=== PATIENT | female | born 1985 | race Caucasian/White ===

== ENCOUNTER → 2017-02-09 11:59 | Emergency (ER) | payer MEDICAID ==
[~2017-02-09 11:59] MED LIST: Morphine INJ* 4 MG/ML 1 ML CARPUJECT IV ONE; NS 0.9% 1000 ML* 1,000 ML IV ONE; Ondansetron INJ* 2 MG/ML VIAL IV ONE
--- NOTE | 2017-02-09 14:00 | RAD ---
HISTORY: Seizure COMPARISONS: None VIEWS: 4: Frontal dual-energy and lateral views of the chest. FINDINGS: CARDIOMEDIASTINAL SILHOUETTE: The cardiomediastinal silhouette is normal. GARETH: The gareth are normal. PLEURA: The costophrenic angles are sharp. No pleural abnormalities are noted. LUNG PARENCHYMA: The lungs are clear. ABDOMEN: The upper abdomen is clear. There is no subphrenic gas. BONES AND SOFT TISSUES: No bone or soft tissue abnormalities are noted. OTHER: None. IMPRESSION: NO ACTIVE CARDIOPULMONARY DISEASE.
[2017-02-09 14:22] LABS: Hematocrit 40 % (35-47); Hemoglobin 13.1 g/dl (12.0-16.0); Mean Corpuscular HGB Conc 33 g/dl (31-36); Mean Corpuscular Hemoglobin 32 pg (27-31); Mean Corpuscular Volume 97 fL (80-97); Mean Platelet Volume 9 um3 (7.4-10.4); Red Cell Distribution Width 14 % (10.5-15); White Blood Count 12.7 10^3/ul (3.5-10.8)
[2017-02-09 14:42] LABS: ALT 12 U/L (7-52); AST 12 U/L (13-39); Albumin 4.3 g/dL (3.2-5.2); Alkaline Phosphatase 41 U/L (34-104); Anion Gap 5 mmol/L (2-11); BUN/Creatinine Ratio 23.9 (8-20); Blood Urea Nitrogen 16 mg/dL (6-24); CO2 Carbon Dioxide 23 mmol/L (22-32); Calcium 9.4 mg/dL (8.6-10.3); Chloride 108 mmol/L (101-111); EGFR African American 130.4 (>60); EGFR Non-African American 101.4 (>60); Globulin 2.8 g/dL (2-4); Glucose 97 mg/dL (70-100); Magnesium 2.3 mg/dL (1.9-2.7); Potassium 3.8 mmol/L (3.5-5.0); Sodium 136 mmol/L (133-145); Total Protein 7.1 g/dL (6.4-8.9)
[2017-02-09 15:09] LABS: Alcohol < 10 mg/dL (<10)
[2017-02-09 17:47] VITALS: BP 118/52
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
== END | disposition home or self-care (01) ==
LOC: ED 11:59
DX: R55 Syncope and collapse (principal); R51 Headache; R11.2 Nausea with vomiting, unspecified; F12.90 Cannabis use, unspecified, uncomplicated; F17.210 Nicotine dependence, cigarettes, uncomplicated
CPT/HCPCS: 36415; 71020; 80053; 80320; 83735; 85025; 85610; 93005; 96360; 99283; G0480

== ENCOUNTER 2017-05-09 08:52 | Day surgery (SDC) | payer OTHER ==
--- NOTE | 2017-05-02 08:10 | HP ---
Cc: Bang Mayfield MD * HISTORY AND PHYSICAL: DATE OF ADMISSION: 05/09/17 ATTENDING SURGEON: Andrew Collins MD * (DICTATED BY DANIEL CINTRON) CHIEF COMPLAINT: Umbilical hernia. HISTORY OF PRESENT ILLNESS: This is a generally healthy 31-year-old female with an umbilical hernia present since her last 8 years ago. The hernia had been relatively asymptomatic with only occasional discomfort until recent weeks when she was moving and was lifting multiple boxes of books. She reports some increased discomfort and enlargement of the hernia, though nothing to suggest incarceration or strangulation and certainly no significant GI or symptoms. The patient has also been previously noted to have diastasis recti during one of her pregnancies. She was seen in the office today by Dr. Collins who confirmed the presence of a small to moderate sized umbilical hernia which was reducible and nontender. He has reviewed with her the indications for repair, the risks, benefits and alternatives. She understands the expected perioperative course and would like to proceed as scheduled with open repair umbilical hernia with mesh. PAST MEDICAL HISTORY: Bipolar disorder (self-treats with cannabis). No other active or chronic medical problems. She recently did have a fall with some left back and rib pain by her history. A chest x-ray done showed no acute problems or rib fractures. PAST SURGICAL HISTORY: Previous surgeries include: 1. x2, both via Pfannenstiel incisions. 2. Tonsillectomy. 3. [place] teeth extraction. 4. Tympanostomy tubes in the past without any problems reported. CURRENT MEDICATIONS: She takes no prescription medications. She does eat a fair amount of garlic and stephan in her diet and was advised to reduce the garlic intake preoperatively. ALLERGIES: Drug allergies none known (she does experience itchiness in her face from multiple fruits and has tested positive for BANANA allergy). FAMILY HISTORY: Noncontributory in terms of anesthesia problems, bleeding or clotting disorders. SOCIAL HISTORY: The patient lives with her boyfriend and his 2 children. 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 She smokes 2 to 3 tobacco with cannabis cigarettes per day. She denies use of alcohol or other recreational drugs. REVIEW OF SYSTEMS: General: No recent constitutional symptoms or acute illnesses. She states that her weight has been stable and states that she is up to date for immunizations. Cardiovascular: No chest pain, palpitations or history of heart murmur. Respiratory: No history of asthma or chronic cough. GI: No problems reported. : No problems reported. EMERGENCY DEPARTMENT CLINICIAN: Up to date for breast and pelvic exams in July 2016. Neuro/Psych: She was admitted both in 2013 and 2014 for her bipolar disorder. PHYSICAL EXAMINATION GENERAL: Well-nourished, well-developed female in no acute distress. VITAL SIGNS: Height 64 inches, weight 155 pounds. Temperature 99.1, blood pressure 144/70, pulse 62, respirations 16. SKIN: Warm and dry. No suspicious rashes or lesions. HEENT: Pupils equal and round, reactive. EOMs intact. No conjunctival pallor. Oropharynx: Teeth in good repair. No intraoral lesions. NECK: No lymphadenopathy, thyromegaly or masses. LUNGS: Clear to auscultation. No wheezes. HEART: Regular rate and rhythm. No murmur noted. BREASTS: Not examined. ABDOMEN: There is a laxity of the skin in the mid abdomen. There is a visible and palpable umbilical bulge consistent with umbilical hernia, which is nontender and reducible with the defect measuring approximately 4 cm in diameter. The remainder of the abdomen is soft, nontender and without palpable masses or organomegaly. GENITALIA: Not done. RECTAL: Not done. EXTREMITIES: No edema. NEUROLOGIC: Grossly intact. IMPRESSION: Umbilical hernia. PLAN: Open repair umbilical hernia with mesh. DANIEL CINTRON [id number]/[facility] #: [id number] FRANCA
[~2017-05-09 08:52] MED LIST changes: +Buffered Lidocaine 0.9% SYRIN* 5 ML/SYR SYRINGE INTRADERM ONE; +Dexamethasone IV* 4 MG/ML 1 ML (4 MG) IV SLOW PU ONE; +Famotidine IV* 10 MG/ML 2 ML (20 mg) IV ONE; -Morphine INJ* 4 MG/ML 1 ML CARPUJECT IV ONE; -NS 0.9% 1000 ML* 1,000 ML IV ONE; -Ondansetron INJ* 2 MG/ML VIAL IV ONE
[2017-05-09] MEDS ORDERED: ceFAZolin 2 GM PREMIX (*) 2 GM/50 ML BAG IVPB ONE (09:06)
[2017-05-09] MEDS ORDERED: Famotidine IV* 10 MG/ML 2 ML (20 mg) ONE (09:06)
[2017-05-09] MEDS ORDERED: Dexamethasone IV* 4 MG/ML 1 ML (4 MG) ONE (09:06)
[2017-05-09] MEDS ORDERED: Buffered Lidocaine 0.9% SYRIN* 5 ML/SYR SYRINGE ONE (09:07)
[2017-05-09] MEDS ORDERED: Bupivacaine 0.5% SDV PF* 10-30ML VIAL ONE (09:57)
[2017-05-09] MEDS ORDERED: Lidocaine 1% MPF wEPI 200,000* 30 ML SDV ONE (09:57)
[2017-05-09] MEDS ORDERED: Lidocaine 2% PF * 5 ML VIAL ONE (10:08)
[2017-05-09] MEDS ORDERED: Propofol* 10 MG/ML 20 ML BTL IV PUSH ONE (10:08)
[2017-05-09] MEDS ORDERED: Ketorolac INJ* 30 MG/ML 1 ML VIAL ONE (10:08)
[2017-05-09] MEDS ORDERED: Midazolam* 1 MG/ML 10 ML VIAL (10 MG) ONE (10:08)
[2017-05-09] MEDS ORDERED: fentaNYL* 50 MCG/ML 5 ML VIAL (250 MCG VIAL) ONE (10:08)
[2017-05-09] MEDS ORDERED: Atracurium* 10 MG/ML 10 ML VIAL ONE (10:08)
[2017-05-09] MEDS ORDERED: Ondansetron INJ* 2 MG/ML VIAL ONE (10:08)
[2017-05-09] MEDS ORDERED: Naloxone* 0.4 MG/ML 1 ML VIAL IV PRN (10:37)
[2017-05-09] MEDS ORDERED: oxyCODONE/Acetamin 5/325 MG* TAB PO PRN (10:37)
[2017-05-09] MEDS ORDERED: fentaNYL* 50 MCG/ML 2 ML VIAL (100 MCG VIAL) IV PRN (10:37)
[2017-05-09] MEDS ORDERED: DiMENhydriNATE IV* 50 MG/ML VIAL IV PUSH PRN (10:37)
[2017-05-09] MEDS ORDERED: Ondansetron INJ* 2 MG/ML VIAL IV PRN (10:37)
--- NOTE | 2017-05-09 11:13 | OP ---
Operative Report - Blank - Operative Report Date of Operation: 05/09/17 Note: Pre and Postop Dxs: Umbilical Hernia (w/ diastasis recti) Procedure: open repair umbilical hernia w/ mesh Anesthesia: LMA gen; local Surgeon: Dennis Asst: DANIEL Sanchez Fluids: 750 ml RL EBL: 10 ml Drains: none Specimen: none Findings: dictated
[2017-05-09 12:12] VITALS: BP 100/78
--- NOTE | 2017-05-10 01:12 | OP ---
CC: Dr. Mayfield * DATE OF OPERATION: 05/09/17 - [facility] DATE OF : 81 SURGEON: Andrew Collins MD ASSISTANT FACILITY MANAGER: DANIEL Alanis ANESTHESIOLOGIST: Dr. Benjamin. ANESTHESIA: General anesthetic, local infiltration. PRE-OP DIAGNOSIS: Umbilical hernia with some diastasis. POST-OP DIAGNOSIS: Umbilical hernia with some diastasis. OPERATIVE PROCEDURE: Open umbilical hernia repair with mesh with plication of diastasis recti. DESCRIPTION OF PROCEDURE: The patient was supine on the operative table. After adequate general anesthetic, compression stockings, Lilly Hugger warmer, and intravenous antibiotics, the abdomen was prepped with antiseptic, draped in a sterile fashion. Local infiltrative anesthesia was administered. Approximately 3 cm curvilinear incision was created at the supraumbilical fold. Dissection was carried down to the hernia defect, which was about 1.5 cm across. The fascia in this area was very attenuated as it was part of the diastasis. The spread of the diastasis was about 3 to 4 cm. Ethibond sutures were utilized to bring the rectus muscle together above and below the umbilicus. This was done through the edge of the rectus sheath. Two sutures above and 2 sutures below were utilized. The preperitoneal plane had been developed and these were full thickness sutures. This was carried out about 4 to 5 cm from the umbilicus in each direction. Then, a 6.4 cm patch was put in place, sutured around the periphery with interrupted sutures of 0 Vicryl. The fascia was closed over top with 0 Vicryl. The umbilicus was tacked back down and the adipose approximated with 3-0 Vicryl and skin with 5-0 Vicryl followed by Steri-Strips. She tolerated the procedure well, was awakened and brought to Recovery in good condition. No complications. No drains. No pathologic specimens. Sponge and instrument counts were correct. Estimated blood loss is less than 20 mL. [id number]/[facility] #: [id number] MTDD
== END 2017-05-09 12:13 | disposition home or self-care (01) ==
LOC: OR 08:52
PROVIDERS: ATTEND Surgery
DX: K42.9 Umbilical hernia without obstruction or gangrene (principal); F31.9 Bipolar disorder, unspecified; F17.210 Nicotine dependence, cigarettes, uncomplicated
CPT/HCPCS: 81025; C1781; J0690; J1100; J1885; J2001; J2250; J2405; J2704; J3010

== ENCOUNTER 2017-05-12 09:38 | Emergency (ER) | payer OTHER ==
--- NOTE | 2017-05-12 11:37 | ED ---
Abdominal Pain/Female - HPI Summary HPI Summary: Patient presents 3 days postop umbilical hernia repair with mesh by Dr. Collins. She presents with worsening pain and concern for cellulitic infection patient denies fever, sweats, chills. She notes to a erythematous area around the umbilicus with diffuse pain to the entire abdomen, worse with movement better with rest. She is currently out of her pain medications and continues to be use ice to the abdomen for comfort. Follow up with Dr. Collins is on Saturday of this week, 6 days from today, and she feels she is unable to wait that long for pain control and assessment. She was able to call Dr. Mcfarlane this morning recommended she come to the ED for an evaluation. She denies any constipation. - History of Current Complaint Chief Complaint: EDAbdPain Stated Complaint: POSSIBLE HERNIA Time Seen by Provider: 05/12/17 10:09 Hx Obtained From: Patient Hx Last Menstrual Period: 2 weeks ago ?: No Onset/Duration: Sudden Onset, Gradual Onset Timing: Constant Severity Initially: Moderate Severity Currently: Moderate Pain Intensity: 5 Pain Scale Used: 0-10 Numeric Character: Cramping Aggravating Factor(s): Deep Breaths Alleviating Factor(s): Nothing Associated Signs and Symptoms: Positive: Urinary Symptoms - Risk Factors Ectopic Risk Factor: Negative Ovarian Torsion Risk Factor: Negative Allergies/Adverse Reactions: Allergies Allergy/AdvReac Type Severity Reaction Status Date / Time Banana Allergy Mild itchinees Verified 05/09/17 09:21 around mouth PMH/Surg Hx/FS Hx/Imm Hx Previously Healthy: Yes Endocrine/Hematology History: Denies: Hx Diabetes, Hx Thyroid Disease Cardiovascular History: Reports: Hx Hypertension - INDUCED during 2nd -resolved Denies: Hx Pacemaker/ICD Respiratory History: Denies: Hx Asthma, Hx Chronic Obstructive Pulmonary Disease (COPD) GI History: Denies: Hx Ulcer Sensory History: Reports: Hx Contacts or Glasses - glasses Denies: Hx Hearing Aid Opthamlomology History: Reports: Hx Contacts or Glasses - glasses Psychiatric History: Reports: Hx Depression - when younger, Hx Panic Disorder, Hx Inpatient Treatment, Hx Community Mental Health Tx, Hx Bipolar Disorder Denies: Hx Eating Disorder, Hx of Violent Episodes Against Others Comment Only: Hx Anxiety - when younger - Surgical History Surgery Procedure, Year, and Place: 2 C SECTIONS, TONSILECTOMY Hx Anesthesia Reactions: No - Immunization History Hx Pertussis Vaccination: No Immunizations Up to Date: Unable to Obtain/Confirm Infectious Disease History: No Infectious Disease History: Denies: Hx Hepatitis, Hx Human Immunodeficiency Virus (HIV), Traveled Outside the US in Last 30 Days - Family History Known Family History: Positive: None - Social History Occupation: Employed Full-time Lives: With Family Alcohol Use: None Hx Substance Use: Yes Substance Use Type: Reports: Marijuana Substance Use Comment - Amount & Last Used: combined with cigarette tobacco Hx Tobacco Use: Yes Smoking Status (MU): Light Every Day Tobacco Smoker Amount Used/How Often: smoking on and off since 16 years old 2 cigarettes a day Have You Smoked in the Last Year: No Review of Systems Constitutional: Negative Negative: Fever, Chills, Fatigue, Skin Diaphoresis Eyes: Negative Cardiovascular: Negative Respiratory: Negative Positive: Abdominal Pain Genitourinary: Negative Positive: no symptoms reported, see HPI Positive: Other - erythematous ring extending approximately 16 cm from the umbilicus Neurological: Negative All Other Systems Reviewed And Are Negative: Yes Physical Exam Triage Information Reviewed: Yes Vital Signs On Initial Exam: Initial Vitals Temp Pulse Resp BP Pulse Ox 98.9 F 70 16 115/72 99 05/12/17 09:41 05/12/17 09:41 05/12/17 09:41 05/12/17 09:41 05/12/17 09:41 Vital Signs Reviewed: Yes Appearance: Positive: Well-Appearing, No Pain Distress, Well-Nourished Skin: Positive: Warm, Skin Color Reflects Adequate Perfusion, Other - Erythematous ring extending 6 cm from the umbilicus Head/Face: Positive: Normal Head/Face Inspection - History Neck: Positive: Supple, Nontender, No Lymphadenopathy Respiratory/Lung Sounds: Positive: Clear to Auscultation, Breath Sounds Present Cardiovascular: Positive: RRR, Pulses are Symmetrical in both Upper and Lower Extremities Neurological: Positive: Sensory/Motor Intact, Alert, Oriented to Person Place, Time, Speech Normal Psychiatric: Positive: Normal, Affect/Mood Appropriate Diagnostics - Vital Signs Vital Signs Temp Pulse Resp BP Pulse Ox 05/12/17 09:41 98.9 F 70 16 115/72 99 - Laboratory Lab Statement: Any lab studies that have been ordered have been reviewed, and results considered in the medical decision making process. Abdominal Pain Fem Course/Dx - Course Course Of Treatment: During the course of treatment, the patient is evaluated for postop surgical pain. There is an erythematous ring extending 6 cm out from the umbilicus resembling a cellulitic infection. There is diffuse tenderness to the entire abdomen. I have called Dr. Mcfarlane who states the surgery was on umbilical hernia repair with mesh with diastasis recti repair which could cause pain due to the muscle being pulled during surgery. She states this is a common occurrence, and likely this pain is related to the surgery. That is, this was not a simple small umbilical hernia repair. Patient is made aware of this and and states she feels as though it is a muscle strain. Coupled with this, and provider assessment, I believe this is normal postop pain and will discharge her with instructions. She is currently out of pain control, and will be given hydrocodone with acetaminophen. She endorses some nausea with this medication and she is encouraged to take Zofran 20 minutes prior to taking the pain control as well as eating solid foods prior to medication. She is also given 7 days of Keflex to prevent any worsening cellulitic infection. She is to call Dr. Collins's office tomorrow morning to get in to see him before Saturday. - Diagnoses Provider Diagnoses: Post-op pain Discharge - Discharge Plan Condition: Stable Disposition: HOME Prescriptions: Cephalexin CAP* [Keflex CAP*] 500 mg PO QID #28 cap Hydrocodone/Acetamin 10/325(NF [[place] 10/325 (NF)] 1 tab PO Q6H #15 tab MDD 4 Ondansetron ODT TAB* [Zofran 4 MG Odt TAB*] 4 mg PO Q6H PRN #20 tab.odt MDD 4 PRN Reason: Nausea Patient Education Materials: Umbilical Hernia Repair (DC) Referrals: Bang Mayfield MD [Primary Care Provider] - Additional Instructions: Follow up with surgery tomorrow Call Dr. Collins office for an appointment Take Zofran 1 tab 20 minutes prior to taking pain control Always eat before you take pain medicine Keflex 4 times daily for 7 days to prevent infection
[2017-05-12 11:47] VITALS: BP 110/70
== END 2017-05-12 11:43 | disposition home or self-care (01) ==
LOC: ED 09:38
DX: G89.18 Other acute postprocedural pain (principal); R10.9 Unspecified abdominal pain; F17.210 Nicotine dependence, cigarettes, uncomplicated
CPT/HCPCS: 99282

== ENCOUNTER 2017-08-09 02:59 | Emergency (ER) | payer OTHER ==
[2017-08-09 04:07] LABS: Urine Appearance Cloudy; Urine Blood Negative (Negative); Urine Color Yellow; Urine Ketones Trace (Negative); Urine Protein Negative (Negative); Urine Specific Gravity 1.017 (1.010-1.030); Urine Urobilinogen Negative (Negative)
[2017-08-09 04:09] LABS: ABS Basophils 0.1 10^3/ul (0-0.2); ABS Eosinophils 0.2 10^3/ul (0-0.6); ABS Lymphocytes 2.8 10^3/ul (1.0-4.8); ABS Monocytes 0.9 10^3/ul (0-0.8); ABS Neutrophils 6.2 10^3/ul (1.5-7.7); ABS Nucleated RBC 0 10^3/ul; Eosinophil % 2.1 % (0-6); Hematocrit 36 % (35-47); Hemoglobin 12.3 g/dl (12.0-16.0); Lymphocyte % 27.4 % (25-47); Mean Corpuscular HGB Conc 34 g/dl (31-36); Mean Corpuscular Hemoglobin 33 pg (27-31); Mean Corpuscular Volume 96 fL (80-97); Mean Platelet Volume 8.1 um3 (7.4-10.4); Nucleated Red Blood Cells % 0; Platelet Count 292 10^3/ul (150-450); Red Blood Count 3.79 10^6/ul (4.0-5.4); Red Cell Distribution Width 15 % (10.5-15); White Blood Count 10.1 10^3/ul (3.5-10.8)
[2017-08-09 04:24] LABS: EGFR Non-African American 86.3 (>60)
--- NOTE | 2017-08-09 06:44 | ED ---
Yana Clark Rebecca, scribed for Terry Do MD on 08/09/17 at 0412 . Psychiatric Complaint - HPI Summary HPI Summary: Pt is a 31 y/o F who presents to ED requesting a MHE. Pt is anxious and states that she doesn't want to be "freaked out" any more and wants to "feel very differently." Sx aggravated by recent changes in life, alleviated by being in the hospital. Additionally notes hallucinations as something that she can "sense." Denies SIs, CP, SOB, abd pain, N/V. Has stayed in the psychiatric unit previously, last in February 2015. PMHx panic disorder, bipolar disorder, depression. Is not on any medication and has recently started therapy. - History Of Current Complaint Chief Complaint: EDMentalHealth Time Seen by Provider: 08/09/17 04:05 Hx Obtained From: Patient Hx Last Menstrual Period: 2 weeks ago Onset/Duration: Still Present Character: Anxious Aggravating Factor(s): Other - Recent changes Alleviating Factor(s): Other - Being in the hospital Associated Signs And Symptoms: Positive: Hallucinating Related History: Positive For: Prior Psychiatric Issues - Depression, panic disorder, bipolar disorder Has Suicidal: Denies: Thoughts - Allergies/Home Medications Allergies/Adverse Reactions: Allergies Allergy/AdvReac Type Severity Reaction Status Date / Time Banana [Banana] Allergy Mild itchinees Verified 05/09/17 09:21 around mouth PMH/Surg Hx/FS Hx/Imm Hx Endocrine/Hematology History: Denies: Hx Diabetes, Hx Thyroid Disease Cardiovascular History: Reports: Hx Hypertension - INDUCED during 2nd -resolved Denies: Hx Pacemaker/ICD Respiratory History: Denies: Hx Asthma, Hx Chronic Obstructive Pulmonary Disease (COPD) GI History: Denies: Hx Ulcer Sensory History: Reports: Hx Contacts or Glasses - glasses Denies: Hx Hearing Aid Opthamlomology History: Reports: Hx Contacts or Glasses - glasses Neurological History: Reports: Hx Spinal Cord Injury Psychiatric History: Reports: Hx Depression - when younger, Hx Panic Disorder, Hx Inpatient Treatment, Hx Community Mental Health Tx, Hx Bipolar Disorder Denies: Hx Eating Disorder, Hx of Violent Episodes Against Others Comment Only: Hx Anxiety - when younger - Surgical History Surgery Procedure, Year, and Place: 2 C SECTIONS, TONSILECTOMY Hx Anesthesia Reactions: No Infectious Disease History: No Infectious Disease History: Denies: Hx Hepatitis, Hx Human Immunodeficiency Virus (HIV), Traveled Outside the [place] in Last 30 Days - Family History Known Family History: Positive: Diabetes - Social History Alcohol Use: None Hx Substance Use: Yes Substance Use Type: Reports: Marijuana Substance Use Comment - Amount & Last Used: combined with cigarette tobacco Hx Tobacco Use: Yes Smoking Status (MU): Light Every Day Tobacco Smoker Amount Used/How Often: smoking on and off since 16 years old 2 cigarettes a day Have You Smoked in the Last Year: No Review of Systems Negative: Chest Pain Negative: Shortness Of Breath Negative: Abdominal Pain, Vomiting, Nausea Neurological: Other - Hallucinations Positive: Anxious, Other - "freaked out"; NEGATIVE: SIs All Other Systems Reviewed And Are Negative: Yes Physical Exam - Summary Physical Exam Summary: Appearance: Well appearing, no pain distress Skin: warm, dry, reflects adequate perfusion Head/face: normal Eyes: EOMI, DEBI ENT: normal Neck: supple, non-tender Respiratory: CTA, breath sounds present Cardiovascular: RRR, pulses symmetrical Musculoskeletal: normal, strength/ROM intact Neuro: normal, sensory motor intact, A&Ox3 Psych: Flat affect Triage Information Reviewed: Yes Vital Signs On Initial Exam: Initial Vitals Temp Pulse Resp BP Pulse Ox 97.4 F 96 20 135/78 97 08/09/17 03:00 08/09/17 03:00 08/09/17 03:00 08/09/17 03:00 08/09/17 03:00 Vital Signs Reviewed: Yes Diagnostics - Vital Signs Vital Signs Temp Pulse Resp BP Pulse Ox 08/09/17 03:00 97.4 F 96 20 135/78 97 - Laboratory Lab Results: Lab Results 08/09/17 08/09/17 08/09/17 Range/Units 03:47 03:47 04:00 WBC (3.5-10.8) 10^3/ul RBC (4.0-5.4) 10^6/ul Hgb (12.0-16.0) g/dl Hct (35-47) % MCV (80-97) fL MCH (27-31) pg MCHC (31-36) g/dl RDW (10.5-15) % Plt Count (150-450) 10^3/ul MPV (7.4-10.4) um3 Neut % (Auto) (38-83) % Lymph % (Auto) (25-47) % [place] % (Auto) (0-7) % Eos % (Auto) (0-6) % Baso % (Auto) (0-2) % Absolute Neuts (auto) (1.5-7.7) 10^3/ul Absolute Lymphs (auto) (1.0-4.8) 10^3/ul Absolute Monos (auto) (0-0.8) 10^3/ul Absolute Eos (auto) (0-0.6) 10^3/ul Absolute Basos (auto) (0-0.2) 10^3/ul Absolute Nucleated RBC 10^3/ul Nucleated RBC % Sodium 139 (139-145) mmol/L Potassium 3.7 (3.5-5.0) mmol/L Chloride 106 (101-111) mmol/L Carbon Dioxide 29 (22-32) mmol/L Anion Gap 4 (2-11) mmol/L BUN 9 (6-24) mg/dL Creatinine 0.77 (0.51-0.95) mg/dL Est GFR ( Amer) 111.0 (>60) Est GFR (Non-Af Amer) 86.3 (>60) BUN/Creatinine Ratio 11.7 (8-20) Glucose 106 H (70-100) mg/dL Calcium 9.1 (8.6-10.3) mg/dL Total Bilirubin 0.30 (0.2-1.0) mg/dL AST 11 L (13-39) U/L ALT 10 (7-52) U/L Alkaline Phosphatase 46 (34-104) U/L Total Protein 6.5 (6.4-8.9) g/dL Albumin 4.0 (3.2-5.2) g/dL Globulin 2.5 (2-4) g/dL Albumin/Globulin Ratio 1.6 (1-3) TSH 0.53 (0.34-5.60) mcIU/mL Beta HCG, Quant < 0.60 mIU/mL Urine Color Yellow Urine Appearance Cloudy Urine pH 6.0 (5-9) Ur Specific [place] 1.017 (1.010-1.030) Urine Protein Negative (Negative) Urine Ketones Trace A (Negative) Urine Blood Negative (Negative) Urine Nitrate Negative (Negative) Urine Bilirubin Negative (Negative) Urine Urobilinogen Negative (Negative) Ur Leukocyte Esterase Negative (Negative) Urine Glucose Negative (Negative) Salicylates < 2.50 (<30) mg/dL Urine Opiates Screen None detected (None Detect) Acetaminophen < 15 mcg/mL Ur Barbiturates Screen None detected (None Detect) Ur Phencyclidine Scrn None detected (None Detect) Ur Amphetamines Screen None detected (None Detect) U Benzodiazepines Scrn None detected (None Detect) Urine Cocaine Screen None detected (None Detect) U Cannabinoids Screen Presumptive positive A (None Detect) Serum Alcohol < 10 (<10) mg/dL 08/09/17 Range/Units 04:00 WBC 10.1 (3.5-10.8) 10^3/ul RBC 3.79 L (4.0-5.4) 10^6/ul Hgb 12.3 (12.0-16.0) g/dl Hct 36 (35-47) % MCV 96 (80-97) fL MCH 33 H (27-31) pg MCHC 34 (31-36) g/dl RDW 15 (10.5-15) % Plt Count 292 (150-450) 10^3/ul MPV 8.1 (7.4-10.4) um3 Neut % (Auto) 61.0 (38-83) % Lymph % (Auto) 27.4 (25-47) % [place] % (Auto) 8.9 H (0-7) % Eos % (Auto) 2.1 (0-6) % Baso % (Auto) 0.6 (0-2) % Absolute Neuts (auto) 6.2 (1.5-7.7) 10^3/ul Absolute Lymphs (auto) 2.8 (1.0-4.8) 10^3/ul Absolute Monos (auto) 0.9 H (0-0.8) 10^3/ul Absolute Eos (auto) 0.2 (0-0.6) 10^3/ul Absolute Basos (auto) 0.1 (0-0.2) 10^3/ul Absolute Nucleated RBC 0 10^3/ul Nucleated RBC % 0 Sodium (139-145) mmol/L Potassium (3.5-5.0) mmol/L Chloride (101-111) mmol/L Carbon Dioxide (22-32) mmol/L Anion Gap (2-11) mmol/L BUN (6-24) mg/dL Creatinine (0.51-0.95) mg/dL Est GFR ( Amer) (>60) Est GFR (Non-Af Amer) (>60) BUN/Creatinine Ratio (8-20) Glucose (70-100) mg/dL Calcium (8.6-10.3) mg/dL Total Bilirubin (0.2-1.0) mg/dL AST (13-39) U/L ALT (7-52) U/L Alkaline Phosphatase (34-104) U/L Total Protein (6.4-8.9) g/dL Albumin (3.2-5.2) g/dL Globulin (2-4) g/dL Albumin/Globulin Ratio (1-3) TSH (0.34-5.60) mcIU/mL Beta HCG, Quant mIU/mL Urine Color Urine Appearance Urine pH (5-9) Ur Specific [place] (1.010-1.030) Urine Protein (Negative) Urine Ketones (Negative) Urine Blood (Negative) Urine Nitrate (Negative) Urine Bilirubin (Negative) Urine Urobilinogen (Negative) Ur Leukocyte Esterase (Negative) Urine Glucose (Negative) Salicylates (<30) mg/dL Urine Opiates Screen (None Detect) Acetaminophen mcg/mL Ur Barbiturates Screen (None Detect) Ur Phencyclidine Scrn (None Detect) Ur Amphetamines Screen (None Detect) U Benzodiazepines Scrn (None Detect) Urine Cocaine Screen (None Detect) U Cannabinoids Screen (None Detect) Serum Alcohol (<10) mg/dL Result Diagrams: 08/09/17 04:00 08/09/17 04:00 Lab Statement: Any lab studies that have been ordered have been reviewed, and results considered in the medical decision making process. Course/Dx - Course Course Of Treatment: Patient was found to be medically stable. She will undergo crisis evaluation. She is signed out to the oncoming physician. Assessment/Plan: Medically cleared for MHE at 0413. - Differential Dx/Clinical Impression Differential Diagnosis/HQI/PQRI: Positive: Anxiety, Bipolar Disorder, Depression Provider Diagnosis: Bipolar 1 disorder, Mood disorder Discharge - Sign-Out/Discharge Documenting (check all that apply): Sign-Out Patient Signing out patient TO: Mayi Wesley - Pending MHE - Discharge Plan Condition: Stable Referrals: Bang Mayfeild MD [Primary Care Provider] - - Billing Disposition and Condition Condition: STABLE The documentation as recorded by the Yana cabrera Rebecca accurately reflects the service I personally performed and the decisions made by me, Terry Do MD.
--- NOTE | 2017-08-09 09:39 | PN ---
ED Flex Patient Progress Note Subjective: This is a 31 year-old F who is pending psych eval secondary to anxiety, hallucinations- noncompliant w/ MH meds for bipolar d/o . Pt offers no complaints at this time. Ate breakfast but would also like a sandwich. Objective: Vitals: Most recent vital signs documented below. General NAD, Alert and oriented x3. Heart: rrr Lungs: breathing easily STEPHEN: ambulates well, FROM Assessment: Bipolar d/o, poorly controlled Plan: Pending psychiatric evaluation. Will follow up daily _while in ED___. Vital Signs Temp Pulse Resp BP Pulse Ox 98.0 F 86 19 111/89 98 08/09/17 08:34 08/09/17 08:34 08/09/17 08:34 08/09/17 08:34 08/09/17 08:34 Lab Results - Entire Visit 08/09/17 08/09/17 08/09/17 04:00 04:00 03:47 WBC 10.1 RBC 3.79 L Hgb 12.3 Hct 36 MCV 96 MCH 33 H MCHC 34 RDW 15 Plt Count 292 MPV 8.1 Neut % (Auto) 61.0 Lymph % (Auto) 27.4 [place] % (Auto) 8.9 H Eos % (Auto) 2.1 Baso % (Auto) 0.6 Absolute Neuts (auto) 6.2 Absolute Lymphs (auto) 2.8 Absolute Monos (auto) 0.9 H Absolute Eos (auto) 0.2 Absolute Basos (auto) 0.1 Absolute Nucleated RBC 0 Nucleated RBC % 0 Sodium 139 Potassium 3.7 Chloride 106 Carbon Dioxide 29 Anion Gap 4 BUN 9 Creatinine 0.77 Est GFR ( Amer) 111.0 Est GFR (Non-Af Amer) 86.3 BUN/Creatinine Ratio 11.7 Glucose 106 H Calcium 9.1 Total Bilirubin 0.30 AST 11 L ALT 10 Alkaline Phosphatase 46 Total Protein 6.5 Albumin 4.0 Globulin 2.5 Albumin/Globulin Ratio 1.6 TSH 0.53 Beta HCG, Quant < 0.60 Urine Color Yellow Urine Appearance Cloudy Urine pH 6.0 Ur Specific [place] 1.017 Urine Protein Negative Urine Ketones Trace A Urine Blood Negative Urine Nitrate Negative Urine Bilirubin Negative Urine Urobilinogen Negative Ur Leukocyte Esterase Negative Urine Glucose Negative Salicylates < 2.50 Urine Opiates Screen Acetaminophen < 15 Ur Barbiturates Screen Ur Phencyclidine Scrn Ur Amphetamines Screen U Benzodiazepines Scrn Urine Cocaine Screen U Cannabinoids Screen Serum Alcohol < 10 08/09/17 03:47 WBC RBC Hgb Hct MCV MCH MCHC RDW Plt Count MPV Neut % (Auto) Lymph % (Auto) Stokes % (Auto) Eos % (Auto) Baso % (Auto) Absolute Neuts (auto) Absolute Lymphs (auto) Absolute Monos (auto) Absolute Eos (auto) Absolute Basos (auto) Absolute Nucleated RBC Nucleated RBC % Sodium Potassium Chloride Carbon Dioxide Anion Gap BUN Creatinine Est GFR ( Amer) Est GFR (Non-Af Amer) BUN/Creatinine Ratio Glucose Calcium Total Bilirubin AST ALT Alkaline Phosphatase Total Protein Albumin Globulin Albumin/Globulin Ratio TSH Beta HCG, Quant Urine Color Urine Appearance Urine pH Ur Specific [place] Urine Protein Urine Ketones Urine Blood Urine Nitrate Urine Bilirubin Urine Urobilinogen Ur Leukocyte Esterase Urine Glucose Salicylates Urine Opiates Screen None detected Acetaminophen Ur Barbiturates Screen None detected Ur Phencyclidine Scrn None detected Ur Amphetamines Screen None detected U Benzodiazepines Scrn None detected Urine Cocaine Screen None detected U Cannabinoids Screen Presumptive positive A Serum Alcohol
[2017-08-09 11:11] VITALS: BP 126/80
--- NOTE | 2017-08-09 13:48 | ED ---
Mary Ellen Clark Julia, scribed for Mayi Wesley MD on 08/09/17 at 0705 . Progress - Progress Note Progress Note: Pt is signed out from Dr. Do pending disposition. Course/Dx - Course Course Of Treatment: Pt is signed out from Dr. Do awaiting disposition. At 10:55, mental health actuarial intern, Sarahi, states that the patient stopped her medications 3 years ago, and has smoked a lot of marijuana today. She reports no SI or HI. She states she does not meet mental health hold crieteria and she would like to be discharged. Pt will be discharged. - Diagnoses Provider Diagnoses: Bipolar 1 disorder, Mood disorder Discharge - Sign-Out/Discharge Documenting (check all that apply): Discharge/Admit/Transfer, Receiving Sign-Out Receiving patient FROM: Terry Do - pending dispo - Discharge Plan Condition: Stable Disposition: HOME Referrals: Bang Mayfield MD [Primary Care Provider] - The documentation as recorded by the Mary Ellen cabrera Julia accurately reflects the service I personally performed and the decisions made by me, Mayi Wesley MD.
== END 2017-08-09 11:34 | disposition home or self-care (01) ==
LOC: ED 02:59
DX: F31.9 Bipolar disorder, unspecified (principal); F17.210 Nicotine dependence, cigarettes, uncomplicated
CPT/HCPCS: 36415; 80053; 80307; 80320; 80329; 81003; 84443; 84702; 85025; 99283; G0480

== ENCOUNTER 2017-08-11 06:41 | Inpatient (IN) | payer OTHER ==
[2017-08-11 12:01] LABS: ABS Basophils 0 10^3/ul (0-0.2); ABS Eosinophils 0 10^3/ul (0-0.6); ABS Lymphocytes 1.6 10^3/ul (1.0-4.8); ABS Monocytes 0.6 10^3/ul (0-0.8); ABS Nucleated RBC 0 10^3/ul; Eosinophil % 0.2 % (0-6); Hematocrit 38 % (35-47); Hemoglobin 12.6 g/dl (12.0-16.0); Lymphocyte % 15.7 % (25-47); Mean Corpuscular HGB Conc 34 g/dl (31-36); Mean Corpuscular Hemoglobin 32 pg (27-31); Mean Corpuscular Volume 95 fL (80-97); Mean Platelet Volume 7.9 um3 (7.4-10.4); Nucleated Red Blood Cells % 0; Platelet Count 312 10^3/ul (150-450); Red Blood Count 3.94 10^6/ul (4.0-5.4); Red Cell Distribution Width 15 % (10.5-15); White Blood Count 10.4 10^3/ul (3.5-10.8)
[2017-08-11 12:24] LABS: Urine Appearance Cloudy; Urine Blood 1+ (Negative); Urine Color Yellow; Urine Ketones 1+ (Negative); Urine Protein Negative (Negative); Urine Red Blood Cell 1+(3-5/hpf) (Absent); Urine Specific Gravity 1.023 (1.010-1.030); Urine Urobilinogen Negative (Negative); Urine White Blood Cell Trace(0-5/hpf) (Absent)
[2017-08-11 12:27] LABS: EGFR Non-African American 94.8 (>60)
--- NOTE | 2017-08-12 11:19 | ED ---
Jessica Clark Edward, scribed for Mayi Wesley MD on 08/11/17 at 0723 . Psychiatric Complaint - HPI Summary HPI Summary: 31 y/o female presents to the ED c/o general fear. Pt seen 3 days ago for the same sx. Pt describes her feelings of fear as paranoia, delusion, and intermittent thoughts that her partner will hurt her. Sx not aggravated or alleviated by anything. Associated sx: hallucinations (hears voices), sleep disturbance. Pt also c/o intermittent syncopal episodes (around 6 times last night), occasionally accompanied with shaking. PMHx bipolar disorder (1). Pt is not on any medication. Denies SI and HI. Pt accompanied by her partner. - History Of Current Complaint Chief Complaint: EDMentalHealth Time Seen by Provider: 08/11/17 07:15 Hx Obtained From: Patient, Family/Program Director/Air Personality - partner Hx Last Menstrual Period: 2 weeks ago Onset/Duration: Still Present Timing: Constant Character: Fearful Aggravating Factor(s): Nothing Alleviating Factor(s): Nothing Related History: Positive For: Prior Psychiatric Issues Has Suicidal: Denies: Thoughts Has Homicidal: Denies: Thoughts - Allergies/Home Medications Allergies/Adverse Reactions: Allergies Allergy/AdvReac Type Severity Reaction Status Date / Time banana Allergy Itching Verified 08/11/17 06:55 PMH/Surg Hx/FS Hx/Imm Hx Previously Healthy: No Endocrine/Hematology History: Denies: Hx Diabetes, Hx Thyroid Disease Cardiovascular History: Reports: Hx Hypertension - INDUCED during 2nd -resolved Denies: Hx Pacemaker/ICD Respiratory History: Denies: Hx Asthma, Hx Chronic Obstructive Pulmonary Disease (COPD) GI History: Denies: Hx Ulcer Sensory History: Reports: Hx Contacts or Glasses - glasses Denies: Hx Hearing Aid Opthamlomology History: Reports: Hx Contacts or Glasses - glasses Neurological History: Reports: Hx Spinal Cord Injury Psychiatric History: Reports: Hx Depression - when younger, Hx Panic Disorder, Hx Inpatient Treatment, Hx Community Mental Health Tx, Hx Bipolar Disorder Denies: Hx Eating Disorder, Hx of Violent Episodes Against Others Comment Only: Hx Anxiety - when younger - Surgical History Surgery Procedure, Year, and Place: 2 C SECTIONS, TONSILECTOMY Hx Anesthesia Reactions: No Infectious Disease History: No Infectious Disease History: Denies: Hx Hepatitis, Hx Human Immunodeficiency Virus (HIV), Traveled Outside the [place] in Last 30 Days - Family History Known Family History: Positive: Diabetes - Social History Alcohol Use: None Hx Substance Use: Yes Substance Use Type: Reports: Marijuana Substance Use Comment - Amount & Last Used: combined with cigarette tobacco Hx Tobacco Use: Yes Smoking Status (MU): Light Every Day Tobacco Smoker Amount Used/How Often: smoking on and off since 16 years old 2 cigarettes a day Have You Smoked in the Last Year: No Review of Systems Constitutional: Negative Eyes: Negative ENT: Negative Cardiovascular: Negative Respiratory: Negative Gastrointestinal: Negative Genitourinary: Negative Musculoskeletal: Negative Skin: Negative Positive: Syncope Positive: Other - Fearful, sleep distrubance, hallucinations All Other Systems Reviewed And Are Negative: Yes Physical Exam - Summary Physical Exam Summary: GENERAL: ~Patient is a well developed and nourished F who is lying comfortable in the stretcher. ~Patient is not in any acute respiratory distress. HEAD AND FACE: Normocephalic EYES: PERRLA, EOMI x 2. EARS: Hearing grossly intact. MOUTH: Oropharynx within normal limits. NECK: Supple, trachea is midline, no adenopathy, no JVD, no carotid bruit. CHEST: Symmetric, no tenderness at palpation LUNGS: Clear to auscultation bilaterally. No wheezing or crackles. CVS: Regular rate and rhythm, S1 and S2 present, no murmurs or gallops appreciated. ABDOMEN: Soft, non-tender. Bowel sounds are normal. No abdominal abnormal pulsations. EXTREMITIES: Full ROM in all major joints, no edema, no cyanosis or clubbing. NEURO: Alert and oriented x 3. No acute neurological deficits. Speech is normal and follows commands. SKIN: Dry and warm PSYCH: Flat affect. No SI or HI. Pt states auditory hallucinations, no visual. Triage Information Reviewed: Yes Vital Signs On Initial Exam: Initial Vitals Temp Pulse Resp BP Pulse Ox 99.8 F 96 14 134/87 98 08/11/17 06:47 08/11/17 06:47 08/11/17 06:47 08/11/17 06:47 08/11/17 06:47 Vital Signs Reviewed: Yes Diagnostics - Vital Signs Vital Signs Temp Pulse Resp BP Pulse Ox 08/11/17 06:47 99.8 F 96 14 134/87 98 - Laboratory Lab Results: Lab Results 08/11/17 08/11/17 08/11/17 Range/Units 11:52 11:52 12:13 WBC 10.4 (3.5-10.8) 10^3/ul RBC 3.94 L (4.0-5.4) 10^6/ul Hgb 12.6 (12.0-16.0) g/dl Hct 38 (35-47) % MCV 95 (80-97) fL MCH 32 H (27-31) pg MCHC 34 (31-36) g/dl RDW 15 (10.5-15) % Plt Count 312 (150-450) 10^3/ul MPV 7.9 (7.4-10.4) um3 Neut % (Auto) 77.4 (38-83) % Lymph % (Auto) 15.7 L (25-47) % Blair % (Auto) 6.2 (0-7) % Eos % (Auto) 0.2 (0-6) % Baso % (Auto) 0.5 (0-2) % Absolute Neuts (auto) 8.0 H (1.5-7.7) 10^3/ul Absolute Lymphs (auto) 1.6 (1.0-4.8) 10^3/ul Absolute Monos (auto) 0.6 (0-0.8) 10^3/ul Absolute Eos (auto) 0 (0-0.6) 10^3/ul Absolute Basos (auto) 0 (0-0.2) 10^3/ul Absolute Nucleated RBC 0 10^3/ul Nucleated RBC % 0 Sodium 137 L (139-145) mmol/L Potassium 3.8 (3.5-5.0) mmol/L Chloride 106 (101-111) mmol/L Carbon Dioxide 24 (22-32) mmol/L Anion Gap 7 (2-11) mmol/L BUN 8 (6-24) mg/dL Creatinine 0.71 (0.51-0.95) mg/dL Est GFR ( Amer) 121.9 (>60) Est GFR (Non-Af Amer) 94.8 (>60) BUN/Creatinine Ratio 11.3 (8-20) Glucose 102 H (70-100) mg/dL Calcium 9.1 (8.6-10.3) mg/dL Total Bilirubin 0.30 (0.2-1.0) mg/dL AST 12 L (13-39) U/L ALT 10 (7-52) U/L Alkaline Phosphatase 41 (34-104) U/L Troponin I 0.00 (<0.04) ng/mL Total Protein 6.7 (6.4-8.9) g/dL Albumin 4.2 (3.2-5.2) g/dL Globulin 2.5 (2-4) g/dL Albumin/Globulin Ratio 1.7 (1-3) TSH 0.14 L (0.34-5.60) mcIU/mL Free T4 0.86 (0.61-1.12) ng/dL Total T3 0.91 (0.87-1.78) ng/mL Beta HCG, Quant < 0.60 mIU/mL Urine Color Urine Appearance Urine pH (5-9) Ur Specific [place] (1.010-1.030) Urine Protein (Negative) Urine Ketones (Negative) Urine Blood (Negative) Urine Nitrate (Negative) Urine Bilirubin (Negative) Urine Urobilinogen (Negative) Ur Leukocyte Esterase (Negative) Urine WBC (Auto) (Absent) Urine RBC (Auto) (Absent) Ur Squamous Epith Cells (Absent) Urine Bacteria (Absent) Urine Glucose (Negative) Salicylates < 2.50 (<30) mg/dL Urine Opiates Screen None detected (None Detect) Acetaminophen < 15 mcg/mL Ur Barbiturates Screen None detected (None Detect) Ur Phencyclidine Scrn None detected (None Detect) Ur Amphetamines Screen None detected (None Detect) U Benzodiazepines Scrn None detected (None Detect) Urine Cocaine Screen None detected (None Detect) U Cannabinoids Screen Presumptive positive A (None Detect) Serum Alcohol < 10 (<10) mg/dL 08/11/17 Range/Units 12:13 WBC (3.5-10.8) 10^3/ul RBC (4.0-5.4) 10^6/ul Hgb (12.0-16.0) g/dl Hct (35-47) % MCV (80-97) fL MCH (27-31) pg MCHC (31-36) g/dl RDW (10.5-15) % Plt Count (150-450) 10^3/ul MPV (7.4-10.4) um3 Neut % (Auto) (38-83) % Lymph % (Auto) (25-47) % [place] % (Auto) (0-7) % Eos % (Auto) (0-6) % Baso % (Auto) (0-2) % Absolute Neuts (auto) (1.5-7.7) 10^3/ul Absolute Lymphs (auto) (1.0-4.8) 10^3/ul Absolute Monos (auto) (0-0.8) 10^3/ul Absolute Eos (auto) (0-0.6) 10^3/ul Absolute Basos (auto) (0-0.2) 10^3/ul Absolute Nucleated RBC 10^3/ul Nucleated RBC % Sodium (139-145) mmol/L Potassium (3.5-5.0) mmol/L Chloride (101-111) mmol/L Carbon Dioxide (22-32) mmol/L Anion Gap (2-11) mmol/L BUN (6-24) mg/dL Creatinine (0.51-0.95) mg/dL Est GFR ( Amer) (>60) Est GFR (Non-Af Amer) (>60) BUN/Creatinine Ratio (8-20) Glucose (70-100) mg/dL Calcium (8.6-10.3) mg/dL Total Bilirubin (0.2-1.0) mg/dL AST (13-39) U/L ALT (7-52) U/L Alkaline Phosphatase (34-104) U/L Troponin I (<0.04) ng/mL Total Protein (6.4-8.9) g/dL Albumin (3.2-5.2) g/dL Globulin (2-4) g/dL Albumin/Globulin Ratio (1-3) TSH (0.34-5.60) mcIU/mL Free T4 (0.61-1.12) ng/dL Total T3 (0.87-1.78) ng/mL Beta HCG, Quant mIU/mL Urine Color Yellow Urine Appearance Cloudy Urine pH 6.0 (5-9) Ur Specific [place] 1.023 (1.010-1.030) Urine Protein Negative (Negative) Urine Ketones 1+ A (Negative) Urine Blood 1+ A (Negative) Urine Nitrate Negative (Negative) Urine Bilirubin Negative (Negative) Urine Urobilinogen Negative (Negative) Ur Leukocyte Esterase Negative (Negative) Urine WBC (Auto) Trace(0-5/hpf) (Absent) Urine RBC (Auto) 1+(3-5/hpf) A (Absent) Ur Squamous Epith Cells Present A (Absent) Urine Bacteria Absent (Absent) Urine Glucose Negative (Negative) Salicylates (<30) mg/dL Urine Opiates Screen (None Detect) Acetaminophen mcg/mL Ur Barbiturates Screen (None Detect) Ur Phencyclidine Scrn (None Detect) Ur Amphetamines Screen (None Detect) U Benzodiazepines Scrn (None Detect) Urine Cocaine Screen (None Detect) U Cannabinoids Screen (None Detect) Serum Alcohol (<10) mg/dL Result Diagrams: 08/11/17 11:52 08/11/17 11:52 Lab Statement: Any lab studies that have been ordered have been reviewed, and results considered in the medical decision making process. - EKG 1 EKG Interpretation: NSR @ 74 BPM Re-Evaluation - Re-Evaluation 1 Re-Evaluation Time: 10:27 Change: Worse - Pt threw herself against at a wall. Made involuntary Course/Dx - Course Course Of Treatment: In the ED course pt made involuntary at this time. Evaluated by the critical access hospital department but waiting recommendation from attending. Pt is on [address] Antonio tesfaye, [place] [facility] [place] testing recommended by Antonio. Dx - r/o mood dysregulation secondary to hyperthyroidism. - Differential Dx/Clinical Impression Provider Diagnosis: Disruptive mood dysregulation disorder Discharge - Sign-Out/Discharge Documenting (check all that apply): Discharge/Admit/Transfer - Discharge Plan Condition: Stable Disposition: ADMITTED TO [facility] - Billing Disposition and Condition Condition: STABLE [place] [place] The documentation as recorded by the Jessica cabrera Edward accurately reflects the service I personally performed and the decisions made by , Mayi Wesley MD.
--- NOTE | 2017-08-12 13:45 | PN ---
[facility]: Group Therapy Note - Service Type Service Type: [id number] Group Psychotherapy - Cognitive Behavioral Group Therapy ( CBT):Patient was attentive and participatory in CBT programming this morning, and remained in good behavioral control. Patient expressed positive insights regarding relevant treatment interventions and goals.
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
[2017-08-12] MEDS ORDERED: lamoTRIgine TAB(*) 25 MG PO ONE (21:00)
[2017-08-12] MEDS: Lithium Carbonate TAB* 300 MG PO SCH (21:31)
[2017-08-13] MEDS: Lithium Carbonate TAB* 300 MG PO SCH ×2 (10:13→20:25)
--- NOTE | 2017-08-13 11:35 | PN ---
MHU: Group Therapy Note - Service Type Service Type: 70367 Group Psychotherapy - Cognitive Behavioral Group Therapy ( CBT):Patient was attentive and participatory in CBT programming this morning, and remained in good behavioral control. Patient expressed positive insights regarding relevant treatment interventions and goals.
[2017-08-13] MEDS ORDERED: Al Hydrox/Mg Hydrox/Simet LIQ* 30 ML UDC PO PRN (11:37)
--- NOTE | 2017-08-13 14:42 | PN ---
Subjective - Subjective Date of Service: 08/13/17 Service Type: 17103 Hosp care 25 min moderate complexity Subjective: Fly discusses her belief that she has supernatural griffiths and notes that she has proven this to others. From there, she skips around topics and is slightly tearful at one moment and seemingly happily victorious at another. She is regretful regarding her children and has little insight into what might have led to her losing custody--she thinks it has to do only with her desire to talk about her former who . We do discuss adding a medication. I suggest Alidalidany Gonzaleza, but she is uninterested in having an injection. I also offer Latuda 40 mg and advise her to eat with it. She is happy with this suggestion as she states when her body fat reduces she acts "crazier." Objective - Appearance Appearance: Healthy Appearing Dysmorphic Features: No Hygiene: Normal Grooming: Well Kept - Behavior Psychomotor Activities: Normal Exhibits Abnormal Movement: No - Attitude and Relatedness Attitude and Relatedness: Child Like Eye Contact: Good - Speech Quality: Pressured Latencies: Normal Quantity: Copious - Mood Patient's Decription of Mood: "Fine" - Affect Observed Affect: Labile Affect Consistent with: Dysphoria - Thought Process Patient's Thought Process: Filght of Ideas Thought Content: No Passive Wish, No Suicidal Planning, No Homicidal Ideation, No Paranoid Ideation - Sensorium Experiencing Hallucinations: No, Sensorium is Clear Type of Hallucinations: Visual: No, Auditory: No, Command: No - Level of Consciousness Level of Consciousness: Alert Orientation: Yes Intact, Yes Orientated to Time, Yes Orientated to Place, Yes Orientated to Person - Impulse Control Impulse Control: Impaired - Insight and Judgement Insight and Judgement: Poor - Group Participation Particating in Group Activities: Yes - Medication Management Medication Management Adherence: Yes - Additional Observations Comments: Medications are being changed to include Latuda at dinner time. Fly's bizarre thoughts include her belief that she can predict the future and use Saman Desirae-type griffiths to discover problems. Assessment - Assessment Merits Inpatient Hospitalization: For Immediate Safety Inpatient DSM-V Dx: F31.2 Clinical Impression: Fly is a 31-y.o. woman with a history of bipolar disorder who comes to the hospital through the ED where she had an overwhelming experience largely due to her own bizarre behavior and inability to cooperate. At this time she is more in control of her behavior, but not her thoughts. She has racing thoughts that are bothersome to her. She is also struggling to make sense of what is happening around her--for example another patient was ill in the milieu and Fly interpreted that as perhaps she was responsible for her possibly dying. Plan - Plan Treatment Plan: Name: FLY MORENO Birthdate: 1985 [id number] Continued Medication Management: Different Medication Medications: Current Medications Acetaminophen (Tylenol Tab*) 650 mg PO Q4H PRN PRN Reason: for pain; or Temp >101 F Al Hydrox/Mg Hydrox/Simethicone (Maalox Plus*) 30 ml PO Q4H PRN PRN Reason: INDIGESTION Lamotrigine (Lamictal Tab(*)) 25 mg PO BEDTIME [facility] [employer] Carbonate ([employer] Carbonate Tab*) 300 mg PO BID [facility] Last Admin: 08/13/17 10:13 Dose: 300 mg Lurasidone HCl (Latuda) 40 mg PO 1700 [facility] Multivitamins (Theragran Tab*) 1 tab PO DAILY [facility]I - Discharge Plan Discharge Plan: Outpatient Follow Up Outpatient Program: [facility] Additional Comments: Yesterday lithium and lamotragine were restarted. Today Latuda was added at 40 mg. She expressed some willingness to try this medication. She was not able to entirely understand the information presented, but still demonstrated willingness and understanding of what symptoms would be affected.
[2017-08-13] MEDS: Lurasidone(*) 40 MG TAB PO SCH (17:49)
[2017-08-13] MEDS ORDERED: lamoTRIgine TAB(*) 25 MG PO ONE ×2 (21:00)
[2017-08-13] MEDS ORDERED: lamoTRIgine TAB(*) 25 MG PO SCH (21:00)
[2017-08-14] MEDS: Lithium Carbonate TAB* 300 MG PO SCH ×2 (09:38→20:22)
[2017-08-14] MEDS: Vitamin THERAPEUTIC TAB PO SCH (09:38)
--- NOTE | 2017-08-14 14:47 | PN ---
Subjective - Subjective Date of Service: 08/14/17 Service Type: 73107 Hosp care 15 min low complexity Subjective: Fly is still elevated. She interrupts conversation occasionally to share her creative ideas regarding decorating the xie and to ask questions regarding the construction. She is concerned that she will be inappropriate with these questions. Fly is engaged in conversation that could be regarded as typically "[place]" (environmental and local concerns), but these are inflated ideas and not the kind of concerns a person would expect a hospitalized person to have. She does not have questions about when she will be discharged and she is happier playing [employer] than talking about her treatment. Objective - Appearance Appearance: Healthy Appearing Dysmorphic Features: No Hygiene: Normal Grooming: Well Kept - Behavior Psychomotor Activities: Normal Exhibits Abnormal Movement: No - Attitude and Relatedness Attitude and Relatedness: Cooperative Eye Contact: Good - Speech Quality: Pressured Latencies: Normal Quantity: Copious - Mood Patient's Decription of Mood: "Good" - Affect Observed Affect: Expansive - Thought Process Patient's Thought Process: Tangential Thought Content: No Passive Wish, No Suicidal Planning, No Homicidal Ideation, No Paranoid Ideation - Sensorium Experiencing Hallucinations: No, Sensorium is Clear Type of Hallucinations: Visual: No, Auditory: No, Command: No - Level of Consciousness Orientation: Yes Intact, Yes Orientated to Time, Yes Orientated to Place, Yes Orientated to Person - Impulse Control Impulse Control: Impaired - Insight and Judgement Insight and Judgement: Impaired - Group Participation Particating in Group Activities: Yes - Medication Management Medication Management Adherence: Yes - Additional Observations Comments: Medications are being changed to include Latuda at dinner time. Fly appears to be in the midst of a manic/mixed episode. She has been tearful today , although when I saw her, she was bright and cheerful and bizarre. Assessment - Assessment Merits Inpatient Hospitalization: For Immediate Safety Inpatient DSM-V Dx: F31.2 Clinical Impression: Fly is a 31-y.o. woman with a history of bipolar disorder who comes to the hospital through the ED where she had an overwhelming experience largely due to her own bizarre behavior and inability to cooperate. At this time she is more in control of her behavior, but not her thoughts. She has racing thoughts that are bothersome to her. She is also struggling to make sense of what is happening around her--for example another patient was ill in the milieu and Fly interpreted that as perhaps she was responsible for her possibly dying. Fly has not improved overnight. She remains tangential and odd, making intense eye contact at times while also darting from looking at one object to the next to ask questions about the construction. Plan - Plan Treatment Plan: Name: FLY MORENO Birthdate: 1985 [id number] Medications: Current Medications Acetaminophen (Tylenol Tab*) 650 mg PO Q4H PRN PRN Reason: for pain; or Temp >101 F Al Hydrox/Mg Hydrox/Simethicone (Maalox Plus*) 30 ml PO Q4H PRN PRN Reason: INDIGESTION Lamotrigine (Lamictal Tab(*)) 25 mg PO BEDTIME [facility]CLUD[facility] Last Admin: 08/13/17 20:25 Dose: 25 mg [place] Carbonate ([place] Carbonate Tab*) 300 mg PO BID COUNT INCLUDES THE [facility] Last Admin: 08/14/17 09:38 Dose: 300 mg Lurasidone HCl (Latuda) 40 mg PO 1700 [facility]CLUDES THE [facility] Last Admin: 08/13/17 17:49 Dose: 40 mg Multivitamins (Theragran Tab*) 1 tab PO DAILY COUNT INCLUDES THE [facility] Last Admin: 08/14/17 09:38 Dose: 1 tab - Discharge Plan Discharge Plan: Outpatient Follow Up Outpatient Program: [facility] Additional Comments: Two days ago lithium and lamotrigine were restarted. Yesterday Latuda was added at 40 mg. She expressed some willingness to try this medication. She was not able to entirely understand the information presented, but still demonstrated willingness and understanding of what symptoms would be affected. I will leave her medications as they are for today as she has been getting good sleep so far with Latuda's addition.
[2017-08-14] MEDS: Lurasidone(*) 40 MG TAB PO SCH (17:15)
[2017-08-14] MEDS: lamoTRIgine TAB(*) 25 MG PO SCH (20:22)
[2017-08-15] MEDS: Vitamin THERAPEUTIC TAB PO SCH (08:35)
[2017-08-15] MEDS: lamoTRIgine TAB(*) 25 MG PO SCH ×2 (08:36→20:20)
[2017-08-15] MEDS: Lithium Carbonate TAB* 300 MG PO SCH ×2 (08:36→20:20)
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
[2017-08-15] MEDS: Lurasidone(*) 40 MG TAB PO SCH (16:49)
--- NOTE | 2017-08-15 16:56 | PN ---
MHU: Group Therapy Note - Service Type Service Type: 52901 Group Psychotherapy - Medication Education Group: Patient attended group and presented with flat affect that did not vary with discussion. Although responsive to direct prompts to respond to questions, patient did not engage in spontaneous conversation.
[2017-08-16] MEDS: lamoTRIgine TAB(*) 25 MG PO SCH ×2 (09:01→20:59)
[2017-08-16] MEDS: Lithium Carbonate TAB* 300 MG PO SCH ×2 (09:01→20:59)
[2017-08-16] MEDS: Vitamin THERAPEUTIC TAB PO SCH (09:01)
[2017-08-16] MEDS ORDERED: LORazepam TAB(*) 0.5 MG PO SCH (13:00)
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
[2017-08-16] MEDS: LORazepam TAB(*) 0.5 MG PO PRN (15:52)
[2017-08-16] MEDS: Lurasidone(*) 40 MG TAB PO SCH (16:54)
[2017-08-17] MEDS: Acetaminophen TAB* 325 MG PO PRN (04:24)
[2017-08-17] MEDS: Lithium Carbonate TAB* 300 MG PO SCH ×2 (07:45→20:11)
[2017-08-17] MEDS: lamoTRIgine TAB(*) 25 MG PO SCH ×2 (07:45→20:11)
[2017-08-17] MEDS: Vitamin THERAPEUTIC TAB PO SCH (07:46)
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
[2017-08-17] MEDS: Lurasidone(*) 40 MG TAB PO SCH (17:38)
[2017-08-18] MEDS: lamoTRIgine TAB(*) 25 MG PO SCH ×2 (08:01→20:33)
[2017-08-18] MEDS: Vitamin THERAPEUTIC TAB PO SCH (09:16)
[2017-08-18] MEDS: Lithium Carbonate TAB* 300 MG PO SCH ×2 (09:16→20:33)
[2017-08-18] MEDS: Lurasidone(*) 40 MG TAB PO SCH (16:55)
[2017-08-18] MEDS: LORazepam TAB(*) 0.5 MG PO PRN (18:14)
[2017-08-19] MEDS: lamoTRIgine TAB(*) 25 MG PO SCH ×2 (07:58→20:42)
[2017-08-19] MEDS: Vitamin THERAPEUTIC TAB PO SCH (07:59)
[2017-08-19] MEDS: Lithium Carbonate TAB* 300 MG PO SCH ×2 (07:59→20:42)
[2017-08-19] MEDS: LORazepam TAB(*) 0.5 MG PO PRN (14:52)
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
[2017-08-19] MEDS: Lurasidone(*) 40 MG TAB PO SCH (17:31)
[2017-08-19] MEDS: cloNIDine TAB* 0.1 MG PO SCH (20:43)
[2017-08-20] MEDS: Acetaminophen TAB* 325 MG PO PRN (05:14)
[2017-08-20] MEDS: Vitamin THERAPEUTIC TAB PO SCH (08:33)
[2017-08-20] MEDS: Lithium Carbonate TAB* 300 MG PO SCH ×2 (08:34→20:41)
[2017-08-20] MEDS: lamoTRIgine TAB(*) 25 MG PO SCH ×2 (08:34→20:41)
[2017-08-20] MEDS: LORazepam TAB(*) 0.5 MG PO PRN ×2 (08:36→15:16)
--- NOTE | 2017-08-20 13:05 | PN ---
MHU: Group Therapy Note - Service Type Service Type: [id number] Group Psychotherapy - Cognitive Behavioral Group Therapy ( CBT):Patient was attentive and participatory in CBT programming this morning, and remained in good behavioral control. Patient expressed positive insights regarding relevant treatment interventions and goals.
[2017-08-20] MEDS: Lurasidone(*) 40 MG TAB PO SCH (17:11)
[2017-08-20] MEDS: cloNIDine TAB* 0.1 MG PO SCH (20:40)
[2017-08-21] MEDS: Vitamin THERAPEUTIC TAB PO SCH (08:35)
[2017-08-21] MEDS: Lithium Carbonate TAB* 300 MG PO SCH ×2 (08:36→21:28)
[2017-08-21] MEDS: lamoTRIgine TAB(*) 25 MG PO SCH ×2 (08:36→21:28)
[2017-08-21] MEDS: LORazepam TAB(*) 0.5 MG PO PRN (10:01)
--- NOTE | 2017-08-21 14:31 | PN ---
Subjective - Subjective Date of Service: 08/21/17 Service Type: [id number] Hosp care 35 min high complexity Subjective: Livia Mathis and I talked with Fly at length about discharge, medication, side effects, and the logistics of future care. Fly is calmer in her presentation than I've seen her before, although she continues to maintain she is psychic and demonstrates that many of her psychic moments more closely resemble coincidences. We are preparing for a discharge tomorrow. Objective - Appearance Appearance: Healthy Appearing Dysmorphic Features: No Hygiene: Normal Grooming: Well Kept - Behavior Psychomotor Activities: Normal Exhibits Abnormal Movement: No - Attitude and Relatedness Attitude and Relatedness: Cooperative Eye Contact: Good - Speech Quality: Pressured Latencies: Normal Quantity: Copious - Mood Patient's Decription of Mood: "Good" - Affect Observed Affect: Good Affect Consistent with: Euthymia - Thought Process Patient's Thought Process: Tangential Thought Content: No Passive Wish, No Suicidal Planning, No Homicidal Ideation, No Paranoid Ideation - Sensorium Experiencing Hallucinations: No, Sensorium is Clear Type of Hallucinations: Visual: No, Auditory: No, Command: No - Level of Consciousness Level of Consciousness: Alert Orientation: Yes Intact, Yes Orientated to Time, Yes Orientated to Place, Yes Orientated to Person - Impulse Control Impulse Control: Intact - Insight and Judgement Insight and Judgement: Fair - Group Participation Particating in Group Activities: Yes - Medication Management Medication Management Adherence: Yes - Additional Observations Comments: Fly is apparently responding well to clonidine, as today she was not very tearful and did not report being terribly triggered by any negative events today. She is happy and bright, although she does offer some complaints regarding her mother. Assessment - Assessment Merits Inpatient Hospitalization: For Discharge Planning Inpatient DSM-V Dx: F31.2 Clinical Impression: Fly is a 31-y.o. woman with a history of bipolar disorder who comes to the hospital through the ED where she had an overwhelming experience largely due to her own bizarre behavior and inability to cooperate. At this time she is more in control of her behavior, but not her thoughts. She has racing thoughts that are bothersome to her. She is also struggling to make sense of what is happening around her--for example another patient was ill in the milieu and Fly interpreted that as perhaps she was responsible for her possibly dying. Fly remains tangential and odd. She is manic and having difficulty managing the symptoms, including suspicion, paranoia, labile mood. Symptoms that are erupting as her laith is reducing are those related to PTSD. This may account for some of her more rapid onset lability. Additional clonidine has been helpful and the medications she is taking now are seeming to be effective. Plan - Plan Treatment Plan: Name: FLY MORENO Birthdate: 1985 [id number] Medications: Current Medications Acetaminophen (Tylenol Tab*) 650 mg PO Q4H PRN PRN Reason: for pain; or Temp >101 F Last Admin: 08/20/17 05:14 Dose: 650 mg Al Hydrox/Mg Hydrox/Simethicone (Maalox Plus*) 30 ml PO Q4H PRN PRN Reason: INDIGESTION Clonidine HCl (Catapres Tab*) 0.1 mg PO BEDTIME [facility] Last Admin: 08/20/17 20:40 Dose: 0.1 mg Lamotrigine (Lamictal Tab(*)) 25 mg PO Q12H [facility] Last Admin: 08/21/17 08:36 Dose: 25 mg [place] Carbonate ([place] Carbonate Tab*) 600 mg PO BEDTIME [facility] Last Admin: 08/20/17 20:41 Dose: 600 mg [place] Carbonate ([place] Carbonate Tab*) 300 mg PO QAM [facility] Last Admin: 08/21/17 08:36 Dose: 300 mg Lorazepam (Ativan Tab(*)) 0.5 mg PO Q4H PRN PRN Reason: ANXIETY Last Admin: 08/21/17 10:01 Dose: 0.5 mg Lurasidone HCl (Latuda) 40 mg PO 1700 [facility] Last Admin: 08/20/17 17:11 Dose: 40 mg Multivitamins (Theragran Tab*) 1 tab PO DAILY [facility] Last Admin: 08/21/17 08:35 Dose: 1 tab - Discharge Plan Discharge Plan: Outpatient [facility] Additional Comments: [place], lamotrigine, Latuda was added at 40 mg. She expressed willingness to take these medications. I am increasing lithium to 300 QAM and 600 QHS. I am adding lorazepam to her regimen to help with anxiety and to reduce laith. She finds the lorazepam helpful. At discharge I will provide her with a small amount of lorazepam and a month's supply of the others.
[2017-08-21] MEDS: Lurasidone(*) 40 MG TAB PO SCH (17:30)
[2017-08-21] MEDS: cloNIDine TAB* 0.1 MG PO SCH (21:28)
[2017-08-22 08:13] VITALS: BP 118/73
[2017-08-22] MEDS: lamoTRIgine TAB(*) 25 MG PO SCH (08:53)
[2017-08-22] MEDS: Vitamin THERAPEUTIC TAB PO SCH (08:54)
[2017-08-22] MEDS: Lithium Carbonate TAB* 300 MG PO SCH (08:54)
[2017-08-22] MEDS: LORazepam TAB(*) 0.5 MG PO PRN (09:44)
--- NOTE | 2017-08-22 11:30 | PN ---
MHU: Group Therapy Note - Service Type Service Type: [id number] Group Psychotherapy - Cognitive Behavioral Group Therapy ( CBT):Patient was attentive and participatory in CBT programming this morning, and remained in good behavioral control. Patient expressed positive insights regarding relevant treatment interventions and goals.
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
== END 2017-08-22 14:50 | disposition home or self-care (01) | DRG 753 ==
LOC: ED 06:41 → BSU 19:51
PROVIDERS: ADMIT Psychiatry & Neurology Psychiatry; ATTEND Psychiatry & Neurology Psychiatry
PROC: GZHZZZZ Group Psychotherapy (ICD-10-PCS; principal; 2017-08-12)
DX: F31.2 Bipolar disorder, current episode manic severe with psychotic features (principal); R45.851 Suicidal ideations; F12.90 Cannabis use, unspecified, uncomplicated; Z91.018 Allergy to other foods; F41.0 Panic disorder [episodic paroxysmal anxiety]; Z83.3 Family history of diabetes mellitus; F17.210 Nicotine dependence, cigarettes, uncomplicated; Z72.89 Other problems related to lifestyle
CPT/HCPCS: 36415; 80053; 80061; 80307; 80320; 80329; 81003; 81015; 83036; 84439; 84443; 84479; 84484; 84702; 85025; 87086; 90853; 93005; 99222; 99231; 99232; 99233; 99238; 99285; A9270-GY; G0480

== ENCOUNTER 2018-07-12 12:35 | Inpatient (IN) | payer OTHER ==
--- NOTE | 2018-07-12 13:00 | ED ---
Psychiatric Complaint - HPI Summary HPI Summary: Patient is a 32-year-old female who presents emergency department for suicidal ideation. Patient has a history of Bipolar disorder and states she has been off her prescribed medication for a while now by choice. Patient's mother who is present states she has been very manic over the last several days and today was making statements she wanted to harm herself. No other past medical history. Patient complains of a headache. She states she has not been eating or drinking well last several days. Symptoms are severe in severity. No current modifying factors. Pt. has been admitted to the [facility] in the past. - History Of Current Complaint Chief Complaint: EDSuicidal Time Seen by Provider: 07/12/18 12:54 Hx Obtained From: Patient Hx Last Menstrual Period: 2 weeks ago - Allergies/Home Medications Allergies/Adverse Reactions: Allergies Allergy/AdvReac Type Severity Reaction Status Date / Time banana Allergy Itching Verified 07/12/18 12:42 PMH/Surg Hx/FS Hx/Imm Hx Previously Healthy: Yes Endocrine/Hematology History: Denies: Hx Diabetes, Hx Thyroid Disease Cardiovascular History: Reports: Hx Hypertension - INDUCED during 2nd -resolved Denies: Hx Pacemaker/ICD Respiratory History: Denies: Hx Asthma, Hx Chronic Obstructive Pulmonary Disease (COPD) GI History: Denies: Hx Ulcer Sensory History: Reports: Hx Contacts or Glasses - glasses Denies: Hx Hearing Aid Opthamlomology History: Reports: Hx Contacts or Glasses - glasses Neurological History: Reports: Hx Spinal Cord Injury Psychiatric History: Reports: Hx Depression - when younger, Hx Panic Disorder, Hx Inpatient Treatment, Hx Community Mental Health Tx, Hx Bipolar Disorder, Hx Substance Abuse Denies: Hx Eating Disorder, Hx of Violent Episodes Against Others Comment Only: Hx Anxiety - when younger - Surgical History Surgery Procedure, Year, and Place: 2 C SECTIONS, TONSILECTOMY Hx Anesthesia Reactions: No Infectious Disease History: No Infectious Disease History: Denies: Hx Hepatitis, Hx Human Immunodeficiency Virus (HIV), Traveled Outside the [place] in Last 30 Days - Family History Known Family History: Positive: None, Diabetes - Social History Occupation: Student Lives: Alone Alcohol Use: None Hx Substance Use: Yes Substance Use Type: Reports: Marijuana Substance Use Comment - Amount & Last Used: combined with cigarette tobacco Hx Tobacco Use: Yes Smoking Status (MU): Light Every Day Tobacco Smoker Type: Cigarettes Amount Used/How Often: smoking on and off since 16 years old 2 cigarettes a day Have You Smoked in the Last Year: No Review of Systems Constitutional: Negative Negative: Fever, Chills Eyes: Negative ENT: Negative Cardiovascular: Negative Respiratory: Negative Gastrointestinal: Negative Genitourinary: Negative Musculoskeletal: Negative Skin: Negative Positive: Headache. Negative: Weakness, Paresthesia, Numbness Positive: Anxious All Other Systems Reviewed And Are Negative: Yes Physical Exam Triage Information Reviewed: Yes Vital Signs On Initial Exam: Initial Vitals Temp Pulse Resp BP Pulse Ox 100.4 F 103 18 114/92 97 07/12/18 12:37 07/12/18 12:37 07/12/18 12:37 07/12/18 12:37 07/12/18 12:37 Vital Signs Reviewed: Yes Appearance: Positive: Well-Nourished - Pt. sitting on bed, tearful, fidgeting. Mother present. Skin: Positive: Warm, Dry Head/Face: Positive: Normal Head/Face Inspection Eyes: Positive: Normal, EOMI, DEBI, Conjunctiva Clear Neck: Positive: Supple Musculoskeletal: Positive: Normal, Strength/ROM Intact Neurological: Positive: Normal, Alert, Oriented to Person Place, Time, CN Intact II-III Psychiatric: Positive: Anxious - [place] Coma Scale Best Eye Response: 4 - Spontaneous Best Motor Response: 6 - Obeys Commands Best Verbal Response: 5 - Oriented Coma Scale Total: 15 Diagnostics - Vital Signs Vital Signs Temp Pulse Resp BP Pulse Ox 07/12/18 12:37 100.4 F 103 18 114/92 97 - Laboratory Result Diagrams: 07/12/18 13:06 07/12/18 13:06 Lab Statement: Any lab studies that have been ordered have been reviewed, and results considered in the medical decision making process. Course/Dx - Course Course Of Treatment: Patient presenting for psychiatric evaluation secondary to laith and suicidal ideations. She has a low-grade fever in the ER 100.4F is mildly tachycardic. Patient denies any flulike symptoms and declines flu swab. Metabolic workup was ordered. Patient medically cleared for evaluation. 1550 : Patient becoming increasingly more agitated and anxious. She is concerned with how long she's been emergency department and is feeling anxious not having her clothes. Patient agrees with 1 mg of by mouth Ativan for anxiety. Patient was given juice and a sandwich. Patient's mother present. Pt. will be signed out to BHARAT Dozier for MHE and disposition. - Differential Dx/Clinical Impression Differential Diagnosis/HQI/PQRI: Positive: Acute Psychosis, Anxiety, Bipolar Disorder, Suicidal Ideation Provider Diagnosis: Manic behavior, Suicidal ideation, Bipolar disorder Discharge - Sign-Out/Discharge Documenting (check all that apply): Sign-Out Patient Signing out patient TO: Andrew Ball Patient Received Moderate/Deep Sedation with Procedure: No - Discharge Plan Referrals: Bang Mayfield MD [Primary Care Provider] -
[2018-07-12 13:25] LABS: ABS Basophils 0.1 10^3/ul (0-0.2); ABS Eosinophils 0.1 10^3/ul (0-0.6); ABS Lymphocytes 2.4 10^3/ul (1.0-4.8); ABS Monocytes 0.7 10^3/ul (0-0.8); ABS Neutrophils 9.4 10^3/ul (1.5-7.7); ABS Nucleated RBC 0 10^3/ul; Eosinophil % 0.4 %; Hematocrit 38 % (33-41); Hemoglobin 12.3 g/dL (12.0-16.0); Lymphocyte % 18.9 %; Mean Corpuscular HGB Conc 33 g/dL (31-36); Mean Corpuscular Hemoglobin 31 pg (27-31); Mean Corpuscular Volume 96 fL (80-97); Mean Platelet Volume 8.1 fL (7.4-10.4); Nucleated Red Blood Cells % 0.1; Platelet Count 340 10^3/uL (150-450); Red Blood Count 3.92 10^6 /uL (3.70-4.87); Red Cell Distribution Width 14 % (10.5-15); White Blood Count 12.6 10^3/uL (3.5-10.8)
[2018-07-12 13:43] LABS: ALT 10 U/L (7-52); AST 10 U/L (13-39); Albumin 4.2 g/dL (3.2-5.2); Albumin/Globulin Ratio 1.9 (1-3); Alkaline Phosphatase 49 U/L (34-104); Anion Gap 6 mmol/L (2-11); BUN/Creatinine Ratio 10.4 (8-20); Blood Urea Nitrogen 8 mg/dL (6-24); CO2 Carbon Dioxide 26 mmol/L (22-32); Calcium 9.4 mg/dL (8.6-10.3); Chloride 106 mmol/L (101-111); EGFR African American 103.8 (>60); EGFR Non-African American 85.8 (>60); Globulin 2.2 g/dL (2-4); Glucose 128 mg/dL (70-100); Potassium 3.8 mmol/L (3.5-5.0); Sodium 138 mmol/L (135-145); Total Protein 6.4 g/dL (6.4-8.9)
[2018-07-12 14:03] LABS: Acetaminophen < 15 mcg/mL; Alcohol < 10 mg/dL (<10); Salicylate < 2.50 mg/dL (<30)
[2018-07-12] MEDS ORDERED: Acetaminophen TAB* 325 MG PO ONE (14:12)
[2018-07-12 14:18] LABS: TSH (Thyroid Stimulating Horm) 0.14 mcIU/mL (0.34-5.60)
[2018-07-12 14:49] LABS: Urine Appearance Cloudy; Urine Bacteria Absent (Absent); Urine Bilirubin Negative (Negative); Urine Blood 3+ (Negative); Urine Color Yellow; Urine Glucose Negative (Negative); Urine Ketones Negative (Negative); Urine Nitrite Negative (Negative); Urine Protein Negative (Negative); Urine Red Blood Cell Trace(0-2/hpf) (Absent); Urine Specific Gravity 1.006 (1.010-1.030); Urine Squamous Epithelial Cell Present (Absent); Urine Urobilinogen Negative (Negative); Urine White Blood Cell Trace(0-5/hpf) (Absent)
[2018-07-12 15:13] LABS: Barbiturates Urine Screen None Detected (None Detect); Benzodiazepine Urine Screen None Detected (None Detect); Urine Cannabinoids Screen Presumptive Positive (None Detect)
[2018-07-12] MEDS ORDERED: LORazepam TAB(*) 1 MG PO ONE (15:53)
[2018-07-12] MEDS ORDERED: Ibuprofen TAB* 800 MG PO ONE (17:21)
[2018-07-12 17:58] LABS: Influenza A Molecular NEGATIVE (Negative); Influenza B Molecular NEGATIVE (Negative)
--- NOTE | 2018-07-12 21:28 | PN ---
Progress Note - Progress Note Date of Service: 07/12/18 Note: Patient signed out to mn by Anatoliy SANCHEZ pending mental health evaluation. Per Dr. Carey patient is a voluntary admit for bipolar disorder. However no beds available at [facility], patient will be transferred. Transfer pending acceptance at alternate psychiatric unit. Patient signout to Dr. Shoemaker pending transfer acceptance.
--- NOTE | 2018-07-13 04:23 | ED ---
Progress - Progress Note Progress Note: This patient was signed out from DANIEL Dozier, to Dr. Montalvo, at 02:00 pending mental health transfer. This patient will be signed out from Dr. Montalvo to Dr. Hills upon shift change at 07:00 07/13/18 pending mental health transfer. - Consult/PCP Time Called: 17:37 Course/Dx - Course Course Of Treatment: This patient was signed out from DANIEL Dozier, to Dr. Montalvo, at 02:00 07/13/18 pending mental health transfer. This patient will be signed out from Dr. Montalvo to Dr. Hills upon shift change at 07:00 07/13/18 pending mental health transfer. - Diagnoses Provider Diagnoses: Bipolar disorder Discharge - Sign-Out/Discharge Documenting (check all that apply): Sign-Out Patient, Receiving Sign-Out Signing out patient TO: Danny Hills - pending mental health transfer Receiving patient FROM: Andrew Ball Patient Received Moderate/Deep Sedation with Procedure: No - Discharge Plan Condition: Improved Disposition: [facility]IATRIC FACILITY-[facility] - Billing Disposition and Condition Condition: IMPROVED Disposition: Psychiatric Facility [facility] - Attestation Statements Document Initiated by Scribe: Yes Documenting Scribe: Reji Tang Provider For Whom Scribe is Documenting (Include Credential): Fam Montalvo MD Scribe Attestation: IReji, scribed for Fam Montalvo MD on 07/17/18 at 1257. Scribe Documentation Reviewed: Yes Provider Attestation: The documentation as recorded by the Reji cabrera accurately reflects the service I personally performed and the decisions made by me, Fam Montalvo MD Status of Scribe Document: Viewed
[2018-07-13] MEDS ORDERED: LORazepam TAB(*) 1 MG PO ONE ×2 (06:38→12:22)
--- NOTE | 2018-07-13 09:11 | ED ---
Progress - Progress Note Progress Note: This patient was signed out from Dr. Montalvo to Dr. Hills upon shift change, pending transfer to another psychiatric facility. EKG done at 0755 reveals NSR at 63 BPM and no acute changes. Course/Dx - Course Course Of Treatment: This patient was signed out from Dr. Montalvo to Dr. Hills upon shift change, pending transfer to another psychiatric facility. EKG done at 0755 reveals NSR at 63 BPM and no acute changes. - Diagnoses Provider Diagnoses: Manic behavior, Suicidal ideation, Bipolar disorder Discharge - Sign-Out/Discharge Documenting (check all that apply): Patient Departure Patient Received Moderate/Deep Sedation with Procedure: No - Discharge Plan Condition: Stable Disposition: PSYCHIATRIC FACILITY-OTHER Referrals: Bang Mayfield MD [Primary Care Provider] - - Billing Disposition and Condition Condition: STABLE Disposition: Psychiatric Facility Other - Attestation Statements Document Initiated by Scribe: Yes Documenting Scribe: Hussein Jernigan Provider For Whom Scribe is Documenting (Include Credential): Danny Hills MD Scribe Attestation: Hussein Clark scribed for Danny Hills MD on 07/13/18 at 1524. Scribe Documentation Reviewed: Yes Provider Attestation: The documentation as recorded by the Hussein cabrera accurately reflects the service I personally performed and the decisions made by Danny bustamante MD Status of Scribe Document: Viewed
--- NOTE | 2018-07-13 11:22 | PN ---
ED Flex Patient Progress Note Date of Service: 07/12/18 Subjective: This is a 32 year-old F who is pending admission to [facility] / transfer to another psychiatric facility / discharge to home / or being observed secondary to claudia, SI. Pt. examined in annex at 1100. She is walking in hallway asking for water to go with her crackers. Objective: Vitals: Most recent vital signs documented below. General NAD, Alert and oriented x3. Laboratory: Current laboratory results documented below. Assessment: Claudia Plan: Pending transfer for bed placement. Vital Signs Temp Pulse Resp BP Pulse Ox 98.7 F 93 16 121/84 98 07/13/18 07:54 07/13/18 07:54 07/13/18 07:54 07/13/18 07:54 07/13/18 07:54 Lab Results - Entire Visit 07/12/18 07/12/18 07/12/18 17:46 13:06 13:06 WBC RBC Hgb Hct MCV MCH MCHC RDW Plt Count MPV Neut % (Auto) Lymph % (Auto) Green % (Auto) Eos % (Auto) Baso % (Auto) Absolute Neuts (auto) Absolute Lymphs (auto) Absolute Monos (auto) Absolute Eos (auto) Absolute Basos (auto) Absolute Nucleated RBC Nucleated RBC % Sodium 138 Potassium 3.8 Chloride 106 Carbon Dioxide 26 Anion Gap 6 BUN 8 Creatinine 0.77 Est GFR ( Amer) 103.8 Est GFR (Non-Af Amer) 85.8 BUN/Creatinine Ratio 10.4 Glucose 128 H Calcium 9.4 Total Bilirubin 0.30 AST 10 L ALT 10 Alkaline Phosphatase 49 Total Protein 6.4 Albumin 4.2 Globulin 2.2 Albumin/Globulin Ratio 1.9 TSH 0.14 L Urine Color Urine Appearance Urine pH Ur Specific [place] Urine Protein Urine Ketones Urine Blood Urine Nitrate Urine Bilirubin Urine Urobilinogen Ur Leukocyte Esterase Urine WBC (Auto) Urine RBC (Auto) Ur Squamous Epith Cells Urine Bacteria Urine Glucose Salicylates < 2.50 Urine Opiates Screen None detected Acetaminophen < 15 Ur Barbiturates Screen None detected Ur Phencyclidine Scrn None detected Ur Amphetamines Screen None detected U Benzodiazepines Scrn None detected Urine Cocaine Screen None detected U Cannabinoids Screen Presumptive positive A Serum Alcohol < 10 Influenza A (Rapid) Negative Influenza B (Rapid) Negative 07/12/18 07/12/18 13:06 12:57 WBC 12.6 H RBC 3.92 Hgb 12.3 Hct 38 MCV 96 MCH 31 MCHC 33 RDW 14 Plt Count 340 MPV 8.1 Neut % (Auto) 74.8 Lymph % (Auto) 18.9 Green % (Auto) 5.3 Eos % (Auto) 0.4 Baso % (Auto) 0.6 Absolute Neuts (auto) 9.4 H Absolute Lymphs (auto) 2.4 Absolute Monos (auto) 0.7 Absolute Eos (auto) 0.1 Absolute Basos (auto) 0.1 Absolute Nucleated RBC 0 Nucleated RBC % 0.1 Sodium Potassium Chloride Carbon Dioxide Anion Gap BUN Creatinine Est GFR ( Amer) Est GFR (Non-Af Amer) BUN/Creatinine Ratio Glucose Calcium Total Bilirubin AST ALT Alkaline Phosphatase Total Protein Albumin Globulin Albumin/Globulin Ratio TSH Urine Color Yellow Urine Appearance Cloudy Urine pH 6.0 Ur Specific [place] 1.006 L Urine Protein Negative Urine Ketones Negative Urine Blood 3+ A Urine Nitrate Negative Urine Bilirubin Negative Urine Urobilinogen Negative Ur Leukocyte Esterase Negative Urine WBC (Auto) Trace(0-5/hpf) Urine RBC (Auto) Trace(0-2/hpf) Ur Squamous Epith Cells Present A Urine Bacteria Absent Urine Glucose Negative Salicylates Urine Opiates Screen Acetaminophen Ur Barbiturates Screen Ur Phencyclidine Scrn Ur Amphetamines Screen U Benzodiazepines Scrn Urine Cocaine Screen U Cannabinoids Screen Serum Alcohol Influenza A (Rapid) Influenza B (Rapid)
--- NOTE | 2018-07-13 12:00 | PN ---
ED Flex Patient Progress Note Date of Service: 07/13/18 Subjective: 32 y.o. , white female with a history of bipolar disorder self-referred to ED seeking hospitalization for increasing depression, paranoia, anxiety and SI without plan. She self-discontinued treatment with lurasidone, lamotrigine and lithium several months ago, believing she was better. Gradually has become more symptomatic and less functional. Mother, Hetal, with whom she lives, is advocating for admission. Objective: young white female in blue paper scrubs; anxious, paranoid; positive SI Assessment: Bipolar Depression, severe with psychotic features Plan: Will resume lamotrigine 25mg PO BID, lurasidone 40mg PO q1700 and lithium 300AM/ 600PM. The patient meets criteria of voluntary 9.13 admission, however, there are no available beds currently on the adult B[facility]. We will transfer her to an accepting psychiatric facility. Vital Signs Temp Pulse Resp BP Pulse Ox 98.7 F 93 16 121/84 98 07/13/18 07:54 07/13/18 07:54 07/13/18 07:54 07/13/18 07:54 07/13/18 07:54 Lab Results - Entire Visit 07/12/18 07/12/18 07/12/18 17:46 13:06 13:06 WBC RBC Hgb Hct MCV MCH MCHC RDW Plt Count MPV Neut % (Auto) Lymph % (Auto) [place] % (Auto) Eos % (Auto) Baso % (Auto) Absolute Neuts (auto) Absolute Lymphs (auto) Absolute Monos (auto) Absolute Eos (auto) Absolute Basos (auto) Absolute Nucleated RBC Nucleated RBC % Sodium 138 Potassium 3.8 Chloride 106 Carbon Dioxide 26 Anion Gap 6 BUN 8 Creatinine 0.77 Est GFR ( Amer) 103.8 Est GFR (Non-Af Amer) 85.8 BUN/Creatinine Ratio 10.4 Glucose 128 H Calcium 9.4 Total Bilirubin 0.30 AST 10 L ALT 10 Alkaline Phosphatase 49 Total Protein 6.4 Albumin 4.2 Globulin 2.2 Albumin/Globulin Ratio 1.9 TSH 0.14 L Urine Color Urine Appearance Urine pH Ur Specific [place] Urine Protein Urine Ketones Urine Blood Urine Nitrate Urine Bilirubin Urine Urobilinogen Ur Leukocyte Esterase Urine WBC (Auto) Urine RBC (Auto) Ur Squamous Epith Cells Urine Bacteria Urine Glucose Salicylates < 2.50 Urine Opiates Screen None detected Acetaminophen < 15 Ur Barbiturates Screen None detected Ur Phencyclidine Scrn None detected Ur Amphetamines Screen None detected U Benzodiazepines Scrn None detected Urine Cocaine Screen None detected U Cannabinoids Screen Presumptive positive A Serum Alcohol < 10 Influenza A (Rapid) Negative Influenza B (Rapid) Negative 07/12/18 07/12/18 13:06 12:57 WBC 12.6 H RBC 3.92 Hgb 12.3 Hct 38 MCV 96 MCH 31 MCHC 33 RDW 14 Plt Count 340 MPV 8.1 Neut % (Auto) 74.8 Lymph % (Auto) 18.9 [place] % (Auto) 5.3 Eos % (Auto) 0.4 Baso % (Auto) 0.6 Absolute Neuts (auto) 9.4 H Absolute Lymphs (auto) 2.4 Absolute Monos (auto) 0.7 Absolute Eos (auto) 0.1 Absolute Basos (auto) 0.1 Absolute Nucleated RBC 0 Nucleated RBC % 0.1 Sodium Potassium Chloride Carbon Dioxide Anion Gap BUN Creatinine Est GFR ( Amer) Est GFR (Non-Af Amer) BUN/Creatinine Ratio Glucose Calcium Total Bilirubin AST ALT Alkaline Phosphatase Total Protein Albumin Globulin Albumin/Globulin Ratio TSH Urine Color Yellow Urine Appearance Cloudy Urine pH 6.0 Ur Specific [place] 1.006 L Urine Protein Negative Urine Ketones Negative Urine Blood 3+ A Urine Nitrate Negative Urine Bilirubin Negative Urine Urobilinogen Negative Ur Leukocyte Esterase Negative Urine WBC (Auto) Trace(0-5/hpf) Urine RBC (Auto) Trace(0-2/hpf) Ur Squamous Epith Cells Present A Urine Bacteria Absent Urine Glucose Negative Salicylates Urine Opiates Screen Acetaminophen Ur Barbiturates Screen Ur Phencyclidine Scrn Ur Amphetamines Screen U Benzodiazepines Scrn Urine Cocaine Screen U Cannabinoids Screen Serum Alcohol Influenza A (Rapid) Influenza B (Rapid)
[2018-07-13] MEDS: Lithium Carbonate TAB* 300 MG PO SCH ×2 (12:25→21:32)
[2018-07-13] MEDS: lamoTRIgine TAB(*) 25 MG PO SCH ×2 (12:25→21:32)
--- NOTE | 2018-07-13 21:17 | ED ---
Progress - Progress Note Progress Note: This patient was signed out from Dr. Hills to Dr. Batres upon shift change, pending transfer to another psychiatric facility. - Consult/PCP Time Called: 17:37 Course/Dx - Course Course Of Treatment: This patient was signed out from Dr. Hills to Dr. Batres upon shift change, pending transfer to another psychiatric facility. The pt will be signed out to Dr. Miller pending psychiatric transfer. - Diagnoses Provider Diagnoses: Manic behavior, Suicidal ideation, Bipolar disorder Discharge - Sign-Out/Discharge Documenting (check all that apply): Sign-Out Patient, Receiving Sign-Out Signing out patient TO: Martin Miller Receiving patient FROM: Danny Hills - Discharge Plan Condition: Stable Disposition: PSYCHIATRIC FACILITY-OTHER Referrals: Bang Mayfield MD [Primary Care Provider] - - Attestation Statements Document Initiated by Scribe: Yes Documenting Scribe: Treva Mcfadden Provider For Whom Scribe is Documenting (Include Credential): Jeff Batres MD. Scribe Attestation: Treva Clark scribed for Jeff Batres MD. on 07/14/18 at 0559. Status of Scribe Document: Ready
[2018-07-13] MEDS: Lurasidone(*) 40 MG TAB PO SCH (21:31)
[2018-07-13] MEDS: cloNIDine TAB* 0.1 MG PO SCH (21:32)
[2018-07-14] MEDS ORDERED: LORazepam TAB(*) 1 MG PO ONE (06:41)
--- NOTE | 2018-07-14 07:22 | ED ---
Progress - Progress Note Progress Note: This patient was signed out from Dr. Batres at shift change, pending transfer to another psychiatric facility. Dr. Carey evaluated the pt and he will admit the pt on a voluntary status to [facility] psychiatric facility with dx bipolar disorder. Course/Dx - Course Course Of Treatment: This is a 32-year-old female who was signed out by Dr. Batres at shift change. The patient is awaiting for mental health evaluation. Dr. Carey evaluated the patient and he recommends admission to his services for further workup and management. - Diagnoses Provider Diagnoses: Bipolar disorder Discharge - Sign-Out/Discharge Documenting (check all that apply): Patient Departure - Admit to [facility], Receiving Sign-Out Receiving patient FROM: Jeff Batres Patient Received Moderate/Deep Sedation with Procedure: No - Discharge Plan Condition: Stable Disposition: PSYCHIATRIC FACILITY-[facility] - Billing Disposition and Condition Condition: STABLE Disposition: Psychiatric Facility [facility] - Attestation Statements Document Initiated by Scribe: Yes Documenting Scribe: Kate Gibson Provider For Whom Scribe is Documenting (Include Credential): Martin Miller MD Scribe Attestation: Kate Clark, scribed for Martin Miller MD on 07/14/18 at 1827. Scribe Documentation Reviewed: Yes Provider Attestation: The documentation as recorded by the Kate cabrera accurately reflects the service I personally performed and the decisions made by , Martin Miller MD Status of Scribe Document: Viewed
[2018-07-14] MEDS: Lithium Carbonate TAB* 300 MG PO SCH ×3 (07:28→20:28)
[2018-07-14] MEDS: lamoTRIgine TAB(*) 25 MG PO SCH ×2 (07:28→20:28)
--- NOTE | 2018-07-14 11:21 | PN ---
ED Flex Patient Progress Note Date of Service: 07/14/18 Subjective: ED day #2 for this 32 y.o. , white female with a history of bipolar disorder self-referred to ED seeking hospitalization for increasing depression, paranoia, anxiety and SI without plan. The patient continues to be depressed and anxious and cannot contract for safety. Objective: young white female in blue paper scrubs; anxious, paranoid; positive SI Assessment: Bipolar Depression, severe with psychotic features Plan: Admit to [facility] pending female bed availability. Vital Signs Temp Pulse Resp BP Pulse Ox 99 F 77 16 130/80 100 07/14/18 07:33 07/14/18 07:33 07/14/18 07:33 07/14/18 07:33 07/14/18 07:33 Lab Results - Entire Visit 07/12/18 07/12/18 07/12/18 17:46 13:06 13:06 WBC RBC Hgb Hct MCV MCH MCHC RDW Plt Count MPV Neut % (Auto) Lymph % (Auto) [place] % (Auto) Eos % (Auto) Baso % (Auto) Absolute Neuts (auto) Absolute Lymphs (auto) Absolute Monos (auto) Absolute Eos (auto) Absolute Basos (auto) Absolute Nucleated RBC Nucleated RBC % Sodium 138 Potassium 3.8 Chloride 106 Carbon Dioxide 26 Anion Gap 6 BUN 8 Creatinine 0.77 Est GFR ( Amer) 103.8 Est GFR (Non-Af Amer) 85.8 BUN/Creatinine Ratio 10.4 Glucose 128 H Calcium 9.4 Total Bilirubin 0.30 AST 10 L ALT 10 Alkaline Phosphatase 49 Total Protein 6.4 Albumin 4.2 Globulin 2.2 Albumin/Globulin Ratio 1.9 TSH 0.14 L Urine Color Urine Appearance Urine pH Ur Specific [place] Urine Protein Urine Ketones Urine Blood Urine Nitrate Urine Bilirubin Urine Urobilinogen Ur Leukocyte Esterase Urine WBC (Auto) Urine RBC (Auto) Ur Squamous Epith Cells Urine Bacteria Urine Glucose Salicylates < 2.50 Urine Opiates Screen None detected Acetaminophen < 15 Ur Barbiturates Screen None detected Ur Phencyclidine Scrn None detected Ur Amphetamines Screen None detected U Benzodiazepines Scrn None detected Urine Cocaine Screen None detected U Cannabinoids Screen Presumptive positive A Serum Alcohol < 10 Influenza A (Rapid) Negative Influenza B (Rapid) Negative 07/12/18 07/12/18 13:06 12:57 WBC 12.6 H RBC 3.92 Hgb 12.3 Hct 38 MCV 96 MCH 31 MCHC 33 RDW 14 Plt Count 340 MPV 8.1 Neut % (Auto) 74.8 Lymph % (Auto) 18.9 [place] % (Auto) 5.3 Eos % (Auto) 0.4 Baso % (Auto) 0.6 Absolute Neuts (auto) 9.4 H Absolute Lymphs (auto) 2.4 Absolute Monos (auto) 0.7 Absolute Eos (auto) 0.1 Absolute Basos (auto) 0.1 Absolute Nucleated RBC 0 Nucleated RBC % 0.1 Sodium Potassium Chloride Carbon Dioxide Anion Gap BUN Creatinine Est GFR ( Amer) Est GFR (Non-Af Amer) BUN/Creatinine Ratio Glucose Calcium Total Bilirubin AST ALT Alkaline Phosphatase Total Protein Albumin Globulin Albumin/Globulin Ratio TSH Urine Color Yellow Urine Appearance Cloudy Urine pH 6.0 Ur Specific [place] 1.006 L Urine Protein Negative Urine Ketones Negative Urine Blood 3+ A Urine Nitrate Negative Urine Bilirubin Negative Urine Urobilinogen Negative Ur Leukocyte Esterase Negative Urine WBC (Auto) Trace(0-5/hpf) Urine RBC (Auto) Trace(0-2/hpf) Ur Squamous Epith Cells Present A Urine Bacteria Absent Urine Glucose Negative Salicylates Urine Opiates Screen Acetaminophen Ur Barbiturates Screen Ur Phencyclidine Scrn Ur Amphetamines Screen U Benzodiazepines Scrn Urine Cocaine Screen U Cannabinoids Screen Serum Alcohol Influenza A (Rapid) Influenza B (Rapid)
[2018-07-14] MEDS ORDERED: Acetaminophen TAB* 325 MG PO PRN (11:39)
[2018-07-14] MEDS ORDERED: Al Hydrox/Mg Hydrox/Simet LIQ* 30 ML UDC PO PRN (11:39)
[2018-07-14] MEDS: Lurasidone(*) 40 MG TAB PO SCH (19:17)
[2018-07-14] MEDS: cloNIDine TAB* 0.1 MG PO SCH (20:23)
[2018-07-15] MEDS: lamoTRIgine TAB(*) 25 MG PO SCH (09:08)
[2018-07-15] MEDS: Lithium Carbonate TAB* 300 MG PO SCH ×2 (09:08→21:51)
--- NOTE | 2018-07-15 11:09 | PN ---
BSU: Group Therapy Note - Service Type Service Type: [id number] Group Psychotherapy - Cognitive Behavioral Group Therapy ( CBT):Patient was attentive and participatory in CBT programming this morning, and remained in good behavioral control. Patient expressed positive insights regarding relevant treatment interventions and goals.
--- NOTE | 2018-07-15 13:26 | HP ---
HISTORY AND PHYSICAL: DATE OF ADMISSION: 07/14/18 PROVIDER: Dalia Rivers NP, in Psychiatry. SUPERVISING PHYSICIAN: Sriram Carey MD* (dictated by Dalia Rivers NP). JUSTIFICATION FOR ADMISSION: The patient is in need of 24-hour supervision and care secondary to suicidal ideation. CHIEF COMPLAINT: "I had a panic attack about if I am going to be able to handle the next stage of my life...very depressed that I don't believe in my own future." HISTORY OF PRESENT ILLNESS: The patient is a 32-year-old and white female with a history of bipolar disorder who arrives via a car and is here on a voluntary status following the panic attack and the concern by her mother that she is not doing well enough to be in the community. Sarahi was here approximately 1 year ago on this unit where she was started on lithium, lurasidone, and lamotrigine. She stopped these medications herself, became symptomatic: became anxious, paranoid, and with suicidal thoughts. She also had to move from her home to another home which she feels as though "is changing the stage" of her life. She is also concerned about finances and being on disability. She is willing to restart medications and that is why she came to the hospital: she believes medication could help her stop racing thoughts and suicidal ideation. She is not sleeping well. She feels guilt about not having enough money. Her energy is not decreased; in fact, she says she wants to help decreasing her energy. She cannot concentrate. Her appetite is bigger than usual she says and she is having suicidal ideation. She also is distractible, perhaps slightly grandiose, and is very talkative. Her anxiety has recently overwhelmed her, causing her to have thoughts that border on delusions PAST PSYCHIATRIC HISTORY: She was here 1 year ago on this unit and was started on lithium, lurasidone, and lamotrigine. She was discharged to [facility] where she eventually discontinued her own medications. [facility] Kena and [facility]. She was also here at [facility] in 2015 under the care of Dr. Geovanni Aquino. Before that, in the late 1999s, she was seen in [place]. Now, she has currently stopped all medications. Upon admission here, she was having suicidal ideation. She does not currently have access to weapons. Compared to her prior presentations, she is more organized and more reasonable. It states in her previous records that in the past she took lithium 1500 mg and Lamictal 200 mg and that she also took 2 mg of Risperdal for a while but wanted to be tapered off that due to her fear of prolonged side effects. PAST MEDICAL HISTORY: 1. She has had two sections. 2. Tonsillectomy. 3. Myringotomy Her TSH is currently 0.14. Follow-up testing is ordered. FAMILY HISTORY: Sarahi is not forthcoming about this. She has an older and a younger sister. She is very proud of both of them. SUBSTANCE ABUSE: She used cannabis daily at her previous admission and was positive for cannabinoids on her drug screen this time.. SOCIAL HISTORY: She was born and raised in [place], [place] and then [place]. She was raised by mom and step-father. She has 2 sisters and 2 step-sisters. She graduated from high school and did some college. 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 Her ex- of brain cancer at 37 years old in early 2012. She has a son and daughter who are being raised by their paternal grandmother. It sounds as thought at some point she had partial or shared custody of the children and in the past there was concern about poor care. REVIEW OF SYSTEMS: The patient reports feeling alert and organized. She denies shortness of breath, heat or cold intolerance, chest pain, or abdominal pain. She denies neurological symptoms. She denies fevers or changes in weight. PHYSICAL EXAMINATION VITAL SIGNS: On 07/15/18 at 0856, temperature 97.9, pulse 85, respirations 16, O2 sat 100%, blood pressure 133/87. MENTAL STATUS EXAM: Sarahi is a slim, short person who has short curly hair and wears dark colored framed glasses. She holds herself tightly together , but then engages in some explosive motions at times. She is generally calm and cooperative. She seems slightly suspicious. Her speech is in normal tone and volume. It is rapid. Her affect is full. Her thought processes are normal. Her thought content is free of delusions, although she is spiritual and acknowledges those sounds like delusions to most people. She is not homicidal. She is afraid of being suicidal. She is not experiencing any hallucinations. Her insight is fair. Her judgement is good. She is alert and oriented x4. LABORATORY DATA: Most data are within normal limits. Exceptions include white blood cells high at 12.6, absolute neutrophils high at 9.4. Glucose was high at 128. AST was low at 10. It should be noted that her TSH was 0.14. Urine specific gravity was low. Urine blood was present. Urine squamous epithelial cells were present. Cannabis is positive on the toxicology screen and she is negative on the influenza rapid test. DIAGNOSES: Bipolar I disorder, current episode mixed IMPRESSION: Sarahi is a 32-year-old woman who comes to the hospital following what she terms a panic attack which influenced her decision to restart medications which she found helpful and believed that the hospital would be the best place for that restart to happen. PLAN: The patient was admitted to the adult behavioral health unit and placed on q.15 minute checks for her own safety. She is encouraged to participate in the supportive milieu, individual, and group therapies. Estimated length of stay is 3 to 5 days. We will titrate medications including lithium to efficacy and monitor for mood and thought content. Discharge planning will include family involvement and outpatient providers. DALIA RIVERS, ROSALBA [id number]/[facility] #: [id number] FRANCA
[2018-07-15] MEDS: cloNIDine TAB* 0.1 MG PO SCH (21:51)
[2018-07-16 08:56] VITALS: BP 113/74
[2018-07-16] MEDS: Lithium Carbonate TAB* 300 MG PO SCH (08:58)
[2018-07-16 09:05] LABS: Free T4 0.84 ng/dL (0.61-1.12)
--- NOTE | 2018-07-16 11:23 | PN ---
BSU: Group Therapy Note - Service Type Service Type: 18333 Group Psychotherapy - Cognitive Behavioral Group Therapy ( CBT):Patient was attentive and participatory in CBT programming this morning, and remained in good behavioral control. Patient expressed positive insights regarding relevant treatment interventions and goals.
--- NOTE | 2018-07-16 16:22 | PN ---
BSU: Group Therapy Note - Service Type Service Type: 20277 Group Psychotherapy - Medication Education Group: Patient was attentive and participatory in group, and remained in good behavioral control. Patient expressed positive insights regarding relevant treatment interventions. Patient stated understanding of material discussed and had appropriate questions.
--- NOTE | 2018-07-17 10:06 | DS ---
CC: Dr. Mayfield; [facility]* DISCHARGE SUMMARY: DATE OF ADMISSION: 07/14/18 DATE OF DISCHARGE: 07/16/18 PROVIDER: Dalia Rivers NP, in Psychiatry. SUPERVISING PHYSICIAN: Dr. Sriram Carey* (dictated by Dalia Rivers NP). DIAGNOSIS: Bipolar 1 disorder, mixed, moderate. CONDITION AT THE TIME OF DISCHARGE: Improved. Psychiatrically cleared. More stable. Sarahi participated in groups and was social with peers. She did well here psychiatrically, tolerating the restart of lithium very well. She will be attending [facility]. MENTAL STATUS EXAM: At the time of discharge, Sarahi is calm, cooperative, and makes good eye contact. She is alert and oriented x4. Her grooming is excellent. Her speech pace is slightly pressured. Her thought processes are logical. She is not psychotic or delusional. She denies AH, VH, SI and HI. Her insight is good. Her judgment is fair. She is willing to follow up and she is urged to see a therapist. DISCHARGE INSTRUCTIONS TO THE PATIENT: A. Medications: 1. Clonidine 0.1 mg at bedtime, dispense 30. 2. [place] carbonate 600 mg at bedtime or 300 mg twice a day. B. Diet is regular. C. Activity is as tolerated. Sarahi is nonsmoker. There are no studies pending at the time of discharge. D. Followup care: She has an appointment at [facility] on 07/17/18 at 11 a.m. It should be noted that her primary care doc is Dr. Mayfield, who may want to look at her thyroid levels as they are unusual. E. Substance abuse followup is not indicated. HOSPITAL COURSE: Part A: Chief Complaint: "I had a panic attack about if I am going to be able to handle the next stage of my life..., very depressed that I don't believe in my own future." The patient is a 32-year-old and white female with history of bipolar disorder, who arrives via car and is here on a voluntary status following the panic attack and the concern by her mother that she is not doing well enough to be in the community. Sarahi was here approximately 1 year ago on this unit, where she started on lithium, lurasidone and lamotrigine. She stopped these medications herself, became symptomatic, became anxious, paranoid and with suicidal thoughts. She also had to move from her home to another home, which she feels as though "is changing the stage" of her life. She is also concerned about finances and being on disability. She is willing to restart medications and that is why she came to the hospital: She believes medication could help her stop racing thoughts and suicidal ideation. She is not sleeping well. She feels guilt about not having enough money. Her energy is not decreased; in fact, she states thus she wants to help decreasing her energy. She cannot concentrate. Her appetite is bigger than usual she states and she is having suicidal ideation at times. She also is distractible, perhaps slightly grandiose and is very talkative. Her anxiety has recently overwhelmed her causing her to have thoughts that border on delusions. Part B: Psychiatric treatment was rendered. Sarahi was admitted to the adult behavioral unit and placed on 15-minute checks for safety. She rapidly advanced to 30-minute checks and staff-pass privileges. Sarahi did well on the unit and went to groups. She interacted with peers well. She easily tolerated the restart of lithium. She decided she did not want lurasidone or lamotrigine as she would like to take as few medications as possible. [place] seems the best choice as it can be a mood stabilizer, can have antidepressant effects and her "psychotic" thoughts tend to be beliefs rather than psychotic thoughts. She was taking clonidine before and is continuing on that. Her stay was quite brief. She was admitted on the 07/14/18. She was discharged on the 07/16/18. She submitted her 72-hour notice on the 07/16/18 and made a compelling argument to leave as soon as possible. One of her largest stressors was not having a place to live, but her mother stepped in and took care of that problem, so her stress level went down and she was no longer having suicidal thoughts. There were no consults entered for Sarahi. She is improved. She is able to advocate for herself. She is continuing to have the physiological symptoms that may be associated with the low TSH, although her T3 and free T4 were normal. DALIA RIVERS, IT SECURITY ENGINEER [id number]/[facility] #: [id number] FRANCA
== END 2018-07-16 16:25 | disposition home or self-care (01) | DRG 753 ==
LOC: ED 12:35 → BSU 07-14 11:34
PROVIDERS: ADMIT Psychiatry & Neurology Psychiatry; ATTEND Psychiatry & Neurology Psychiatry
DX: F31.62 Bipolar disorder, current episode mixed, moderate (principal); R45.851 Suicidal ideations; F12.90 Cannabis use, unspecified, uncomplicated
CPT/HCPCS: 36415; 80053; 80061; 80307; 80320; 80329; 81003; 81015; 83036; 84439; 84443; 84479; 85025; 87086; 90853; 93005; 99222; 99285; A9270-GY; G0480